=== PATIENT | male | born 1955 | race Hispanic/Latino ===

== ENCOUNTER 2018-04-28 02:15 | Emergency (ER) | payer BC ==
[~2018-04-28] VITALS: Ht 177.8 cm; Wt 127.0 kg
[2018-04-28] MEDS ORDERED: TETANUS/DIPHTHERIA TOX ADULT 0.5 ML SYR ONE (02:42)
[2018-04-28] MEDS ORDERED: TRIMETHOPRIM/SULFAMETHOXAZOLE 160-800 MG TAB PO ONE (02:45)
[2018-04-28] MEDS ORDERED: HYDROCODONE/APAP 10MG-325MG TAB PO ONE (02:45)
[2018-04-28] MEDS ORDERED: TETANUS/DIPHTHERIA TOX ADULT 0.5 ML SYR IM ONE (02:45)
[2018-04-28] MEDS ORDERED: NEOMYCIN/POLYMYX/BACITR OINT 0.9 GM PKT ONE (02:47)
== END 2018-04-28 03:38 | disposition home or self-care (01) ==
LOC: ER 02:15
DX: S81.802A Unspecified open wound, left lower leg, initial encounter (principal); W22.8XXA Striking against or struck by other objects, initial encounter; Y92.009 Unspecified place in unspecified non-institutional (private) residence as the place of occurrence of the external cause; I10 Essential (primary) hypertension; E11.9 Type 2 diabetes mellitus without complications; E78.5 Hyperlipidemia, unspecified
CPT/HCPCS: 90471; 90714; 99282

== ENCOUNTER 2019-06-07 19:17 | Emergency (ER) | payer BC, OTHER ==
[~2019-06-07] VITALS: Ht 177.8 cm; Wt 127.0 kg
--- OUTSIDE RECORDS SUMMARY | 2019-06-07 19:19 | XMS REPORT ---
Author Author [facility] Address Unknown Phone Unavailable Care Team Providers Care Semiconductor Engineer Name Role Phone Unavailable Unavailable Payers Payer Name Policy Type Policy Number Effective Date Expiration Date Problems This patient has no known problems. Allergies, Adverse Reactions, Alerts Allergy Name Allergy Type Status Severity Reaction(s) Onset Date Inactive Date Treating Clinician Comments No Known Allergies DA Active U 2019-02-02 00:00:00 Medications This patient has no known medications. Results Test Description Test Time Test Comments Text Results Atomic Results Result Comments TROPONIN-I 2019-02-02 23:04:00 TROPONIN-I (test code=TROPI) <0.015 ng/mL 0.00-0.056 - XR CHEST 2 [id number] 21:04:00 FAX: Tri Pereira [phone] [place]: [place] St: REG Name: Tierney REIDKASSYMORENO OVERTONDEVON MEDELLIN [facility] FSED : [birth year] Age/S: 63/M [address] [facility] [address] Unit #: [id number] Loc: [facility] B Phys: Tri Pereira MD [place], [place] [address] Acct: [id number] Dis Date: Status: REG ER PHONE #: Exam Date: 02/02/20192107 FAX #: Reason: CHEST PAIN EXAMS: CPT CODE: [id number] XR CHEST 2 V [id number] REASON FOR EXAM: CHEST PAIN Exam Order Date: 02/02/2019 8:03 PM Ordering M.D.: Tri Pereira MD PROCEDURE: - XR CHEST 2 V COM PARISON: None FINDINGS: The lungs are clear. There is no pleural effusion or pneumothorax. Pulmonary vascularity is within normal l imits. Cardiomediastinal silhouette is normal in size for techniqu e. The mediastinal contours are within normal limits. There are degenerative changes in the spine. The visualized upper abdome n is within normal limits. IMPRESSION: No acute cardiopu lmonary process. 19 at 2103 Reported and signed by: Rajeev Rosales MD CC: Tri Pereira MD Technologist: Florentino Quiroz Trnscrd Date/Time/By: 02/02/2019 (2103) : By: [email or web address] Orig Print D/T: S: 02/02/2019 (2110) PAGE 1 Signed Report BASIC METABOLIC [id number] 20:35:00* Test Item Value Reference Range Comments SODIUM (test code=NA) 141 mmol/L 128-145 POTASSIUM (test code=K) 3.8 mmol/L 3.5-5.1 CHLORIDE (test code=CL) 104.0 mmol/L 98-107 CARBON DIOXIDE (test code=CO2) 28.1 mmol/L 22-29 ANION GAP (test code=GAP) 13 mmol/L 10-20 GLUCOSE (test code=GLU) 143 mg/dL 70-110 BLOOD UREA NITROGEN (test code=BUN) 21 mg/dL 7-22 GLOMERULAR FILTRATION RATE (test code=GFR) > 60 mL/min >=60 Estimated GFR by using Modified MDRD formula.Chronic kidney disease is defined as either kidney damageor GFR <60 mL/min/1.73 m2 for >3 months. CREATININE (test code=CREAT) 0.91 mg/dL 0.55-1.3 BUN/CREATININE RATIO (test code=BUN/CREA) 23.1 10-20 CALCIUM (test code=CA) 8.4 mg/dL 8.0-10.5 [id number] 20:35:00* Test Item Value Reference Range Comments TROPONIN-I (test code=TROPI) <0.015 ng/mL 0.00-0.056 PROTHROMBIN [id number] 20:30:00* Test Item Value Reference Range Comments PROTHROMBIN TIME PATIENT (test code=PTP) 9.9 seconds 9.0-13.0 INTERNATIONAL NORMAL RATIO (test code=INR) 1.0 0.8-1.2 The therapeutic range for oral anticoagulant therapy formost indications is an international normalized ratio (INR)of between 2.0 and 3.0. The recommended therapeutic INRrange for various clinical situations is listed below: Clinical Situation INR range Pulmonary e mbolism treatment (2.0-3.0)Venous thrombosis treatmentVenous thrombosis prophylaxis (high risk surgery)Prevention of systemic embolism from: Acute myocardial infarction Valvular heart disease Atrial fibrillation Mechanical prosthetic heart valves (2.5-3.5) IS PATIENT ON ANTICOAGULANTS? NTHROMBOPLASTIN TIME [id number] 20:30:00* Test Item Value Reference Range Comments THROMBOPLASTIN TIME PARTIAL (test code=PTT) 28.5 seconds 25.5-34.3 Therapeutic Range for patients on Heparin Therapy is 2 to2.5 times their baseline PTT level. IS PATIENT ON ANTICOAGULANTS? NBASIC METABOLIC [id number] 20:27:00* Test Item Value Reference Range Comments SODIUM (test code=NA) 141 mmol/L 128-145 POTASSIUM (test code=K) 3.8 mmol/L 3.5-5.1 CHLORIDE (test code=CL) 104.0 mmol/L 98-107 CARBON DIOXIDE (test code=CO2) 28.1 mmol/L 22-29 ANION GAP (test code=GAP) 13 mmol/L 10-20 GLUCOSE (test code=GLU) 143 mg/dL 70-110 BLOOD UREA NITROGEN (test code=BUN) 21 mg/dL 7-22 GLOMERULAR FILTRATION RATE (test code=GFR) > 60 mL/min >=60 Estimated GFR by using Modified MDRD formula.Chronic kidney disease is defined as either kidney damageor GFR <60 mL/min/1.73 m2 for >3 months. CREATININE (test code=CREAT) 0.91 mg/dL 0.55-1.3 BUN/CREATININE RATIO (test code=BUN/CREA) 23.1 10-20 CALCIUM (test code=CA) 8.4 mg/dL 8.0-10.5 [id number] 20:27:00* Test Item Value Reference Range Comments TROPONIN-I (test code=TROPI) ng/mL 0-0.045 CBC W/O [id number] 20:18:00* Test Item Value Reference Range Comments WHITE BLOOD CELL (test code=WBC) 7.8 K/mm3 4.5-12.5 RED BLOOD CELL (test code=RBC) 4.65 mill/mm3 4.0-5.8 HEMOGLOBIN (test code=HGB) 14.2 gram/dL 13.0-17.5 HEMATOCRIT (test code=HCT) 44.7 % 42.0-52.0 MEAN CELL VOLUME (test code=MCV) 96.1 fL 80-98 MEAN CELL HGB (test code=MCH) 30.5 picogram 27.0-33.0 MEAN CELL HGB CONCETRATION (test code=MCHC) 31.8 gram/dL 33.0-36.0 RED CELL DISTRIBUTION WIDTH (test code=RDW) 14.1 % 11.6-16.2 RED CELL DISTRIBUTION WIDTH SD (test code=RDW-SD) 50.1 fL 37.0-51.0 PLATELET COUNT (test code=PLT) 186 K/mm3 150-450 MEAN PLATELET VOLUME (test code=MPV) 11.9 fL 6.7-11.0
[2019-06-07] MEDS ORDERED: IPRATROPIUM BROMIDE 0.02% 2.5 ML NEB NEB STA (19:36)
[2019-06-07] MEDS ORDERED: ALBUTEROL SULF 0.083% NEB SOLN 3 ML NEB NEB STA (19:36)
[2019-06-07] MEDS ORDERED: DEXAMETHASONE SOD PHOS 10 MG/1 ML VIAL IM NR (19:45)
[2019-06-07] MEDS ORDERED: ACETAMINOPHEN/CODEINE ELIX 120-12 MG/5 ML UDC PO NR (20:00)
--- NOTE | 2019-06-07 20:27 | Diagnostic Imaging Report ---
EXAMINATION: CHEST 2 VIEWS INDICATION: Cough. COMPARISON: None FINDINGS: TUBES and LINES: None. LUNGS: Lungs are well inflated. Patchy bibasilar opacities. There is central vascular congestion. PLEURA: No pleural effusion or pneumothorax. HEART AND MEDIASTINUM: The cardiomediastinal silhouette is unremarkable. BONES AND SOFT TISSUES: No acute osseous lesion. Soft tissues are unremarkable. UPPER ABDOMEN: No free air under the diaphragm. IMPRESSION: Central vascular congestion without pulmonary edema. Patchy bibasilar opacities, likely atelectasis. Early pneumonia is possible in the appropriate clinical setting. Suggest follow-up chest radiograph in 6-8 weeks to assess for resolution. Signed by: Dr. Bertrand Hylton MD on 06/07/2019 8:23 PM
== END 2019-06-07 21:20 | disposition home or self-care (01) ==
LOC: ER 19:17
DX: R50.9 Fever, unspecified (principal); R05 Cough; J11.1 Influenza due to unidentified influenza virus with other respiratory manifestations; I10 Essential (primary) hypertension; E11.9 Type 2 diabetes mellitus without complications; E78.5 Hyperlipidemia, unspecified
CPT/HCPCS: 71046; 94640; 99283

== ENCOUNTER 2020-02-26 20:41 | Observation (INO) | payer MEDICARE ==
[~2020-02-26] VITALS: Ht 177.8 cm; Wt 121.1 kg
[2020-02-26] MEDS ORDERED: CEFAZOLIN SOD 1 GM/NS 50ML 50 ML IV ONE (21:00)
[2020-02-26] MEDS ORDERED: MORPHINE SULFATE 2 MG/ML SYR 1ML IV STA (21:02)
[2020-02-26] MEDS ORDERED: ONDANSETRON HCL INJ 2MG/ML 2ML 2 MG/ML VIAL IV STA (21:02)
--- NOTE | 2020-02-26 21:28 | Emergency Department Note ---
History of Present Illnes History of Present Illness Chief Complaint: Laceration History of Present Illness This is a 64 year old male cut left 5th digit with a table saw, states he split the end of his finger in two.. Historian: Patient Onset (how long ago): minute(s) (30) Location: left 5th finger Quality: cut Radiation: Reports non-radiation Severity: severe Duration (how long): hour(s) (30 minutes) Timing of current episode: constant Progression: unchanged Chronicity: new Context: Reports trauma/injury (cut finger with table saw) Relieving factors: none Exacerbating factors: movement Associated symptoms: Reports denies other symptoms Treatments prior to arrival: none Past Medical/Family History Physician Review I have reviewed the patient's past medical and family history. Any updates have been documented here. Past Medical History Recent Fever: No Clinical Suspicion of Infectio: No New/Unexplained Change in Ment: No Past Medical History: Hypertension, Diabetes Past Surgical History: None Other Surgery: RIGHT SHOULDER Social History Smoking Cessation: Never Smoker Alcohol Use: Occasional Any Illegal Drug Use: No Family History Family history of heart diseas: No Other family history htn,dm Other Last Tetanus: UNKNOWN Review of Systems Review of Systems Constitutional: Reports no symptoms EENTM: Reports no symptoms Cardiovascular: Reports no symptoms Respiratory: Reports no symptoms Gastrointestinal: Reports no symptoms Genitourinary: Reports no symptoms Musculoskeletal: Reports as per HPI Integumentary: Reports no symptoms Neurological: Reports no symptoms Psychological: Reports no symptoms Endocrine: Reports no symptoms Hematological/Lymphatic: Reports no symptoms Physical Exam Related Data Allergies: Coded Allergies: No Known Allergies (Unverified , 04/28/18) Triage Vital Signs Vital Signs Date Time Temp Pulse Resp B/P (MAP) Pulse Ox O2 Delivery O2 Flow Rate FiO2 02/26/20 20:58 98.3 83 20 164/86 97 Room Air Vital signs reviewed: Yes Physical Exam CONSTITUTIONAL Constitutional: Present well-developed, Present well-nourished, Present distressed (mild) HENT HENT: Present normocephalic, Present atraumatic, Present oropharynx clear/moist, Present nose normal HENT L/R: Present left ext ear normal, Present right ext ear normal EYES Eyes: Reports PERRL, Reports conjunctivae normal NECK Neck: Present ROM normal PULMONARY Pulmonary: Present effort normal, Present breath sounds normal CARDIOVASCULAR Cardiovascular: Present regular rhythm, Present heart sounds normal, Present capillary refill normal, Present normal rate GASTROINTESTINAL Abdominal: Present soft, Present nontender, Present bowel sounds normal GENITOURINARY Genitourinary: Present exam deferred SKIN Skin: Present warm, Present dry MUSCULOSKELETAL pt with longitudinal cut through end of left 5 finger with nail involvement and likely fracture of the distal phalanx, wound is mangled and about 2 cm in length, minimal bleeding at this time NEUROLOGICAL Neurological: Present alert, Present oriented x 3, Present no gross motor or sensory deficits PSYCHOLOGICAL Psychological: Present mood/affect normal, Present judgement normal Results Laboratory Laboratory Laboratory Tests Test 02/26/20 22:08 White Blood Count 6.96 x10e3/uL (4.8-10.8) Red Blood Count 4.92 x10e6/uL (4.3-5.7) Hemoglobin 14.6 g/dL (14.0-18.0) Hematocrit 45.8 % (38.2-49.6) Mean Corpuscular Volume 93.1 fL (81-99) Mean Corpuscular Hemoglobin 29.7 pg (28-32) Mean Corpuscular Hemoglobin Concent 31.9 g/dL (31-35) Red Cell Distribution Width 13.2 % (11.7-14.4) Platelet Count 215 x10e3/uL (140-360) Neutrophils (%) (Auto) 57.8 % (38.7-80.0) Lymphocytes (%) (Auto) 26.1 % (18.0-39.1) Monocytes (%) (Auto) 8.5 % (4.4-11.3) Eosinophils (%) (Auto) 6.0 % (0.0-6.0) Basophils (%) (Auto) 0.9 % (0.0-1.0) Neutrophils # (Auto) 4.0 (2.1-6.9) Lymphocytes # (Auto) 1.8 (1.0-3.2) Monocytes # (Auto) 0.6 (0.2-0.8) Eosinophils # (Auto) 0.4 (0.0-0.4) Basophils # (Auto) 0.1 (0.0-0.1) Absolute Immature Granulocyte (auto 0.05 x10e3/uL (0-0.1) Prothrombin Time 13.2 seconds (11.9-14.5) Prothromb Time International Ratio 0.95 Activated Partial Thromboplast Time 31.7 seconds (23.8-35.5) Sodium Level 142 mmol/L (136-145) Potassium Level 4.9 mmol/L (3.5-5.1) Chloride Level 105 mmol/L (98-107) Carbon Dioxide Level 26 mmol/L (22-29) Anion Gap 15.9 mmol/L (8-16) Blood Urea Nitrogen 27 mg/dL (7-26) Creatinine 1.64 mg/dL (0.72-1.25) Estimat Glomerular Filtration Rate 42 ML/MIN (60-) BUN/Creatinine Ratio 16 (6-25) Glucose Level 166 mg/dL (74-118) Calcium Level 9.5 mg/dL (8.4-10.2) Lab results reviewed: Yes Imaging Imaging results reviewed: Yes Impressions Procedure: [id number] DX/FINGER LEFT Exam Date: 02/26/20 Exam Time: 2108 REPORT STATUS: Signed X-ray left finger 3 views HISTORY: Pain. COMPARISON: None available. FINDINGS: Bones: Acute comminuted open fracture of the fifth finger distal phalangeal tuft. Joints: The joint spaces are well-maintained. Soft tissues: Bone deep wound of the distal aspect of the fifth finger. IMPRESSION: Acute comminuted open fracture of the fifth finger distal phalangeal tuft with associated deep laceration. Signed by: Duane Bender DO on 02/26/2020 9:33 PM Procedures 12 Lead ECG Interpretation ECG Interpretation : ECG: ECG 1 [address] [place]: Interpreted by ED physician Date: Feb 26, 2020 Time: 22:31 Rhythm: sinus rhythm Rate: normal BPM: 74 QRS axis: normal Clinical Impression: normal ECG Assessment & Plan Medical Decision Making [facility] pt with injury to left 5th finger from table saw xray ordered to eval for fracture cbc, bmp, pt/ptt ordered as pre op labs morphine 4 mg iv ordered zofran 4 mg iv ordered ancef 1 gram iv ordered I SPOKE WITH DR PRABHAKAR, STATES HAVE PT ADMITTED TO [facility]ER HOSPITALIST, PT TO GO TO OR IN AM I SPOKE WITH DR PETIT FOR ADMISSION Assessment & Plan Final Impression: (1) 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
--- NOTE | 2020-02-26 21:36 | Diagnostic Imaging Report ---
X-ray left finger 3 views HISTORY: Pain. COMPARISON: None available. FINDINGS: Bones: Acute comminuted open fracture of the fifth finger distal phalangeal tuft. Joints: The joint spaces are well-maintained. Soft tissues: Bone deep wound of the distal aspect of the fifth finger. IMPRESSION: Acute comminuted open fracture of the fifth finger distal phalangeal tuft with associated deep laceration. Signed by: Duane Bender DO on 02/26/2020 9:33 PM
[2020-02-26] MEDS ORDERED: DEXTROSE 50% SYRINGE 50 ML IV PRN (22:00)
[2020-02-26] MEDS ORDERED: ONDANSETRON HCL INJ 2MG/ML 2ML 2 MG/ML VIAL IV PRN (22:00)
--- OUTSIDE RECORDS SUMMARY | 2020-02-26 22:05 | XMS REPORT | Continuity of Care Document ---
Author Author [facility] t Organization [facility] Address [address] [place] [address] Phone Unavailable Care Team Providers Care Mold Stacker Name Role Phone NONSTAFF PCP Unavailable Gilbert TIJERINA Attphys Unavailable INA PETIT Attphydallas Unavailable Payers Payer Name Policy Type Policy Number Effective Date Expiration Date [place] Crowder Ppo [id number] 2018 00:00:00 FRANCIS mcgraw [facility] Problems Condition Name Condition Details Condition Category Status Onset Date Resolution Date Last Treatment Date Treating Clinician Comments Source Left carpal tunnel syndrome Left carpal tunnel syndrome Disease Active 2018-09-03 00:00:00 Christian Crewsist Carpal tunnel syndrome on right Carpal tunnel syndrome on right Dis ease Active 2018-08-26 00:00:00 Christian Mcwilliams Allergies, Adverse Reactions, Alerts Allergy Name Allergy Type Status Severity Reaction(s) Onset Date Inacti ve Date Treating Clinician Comments Source No Known Allergies DA Active U 2019-02-02 00:00:00 [facility] Adhesive Tape-Silicones Propensity to adverse reactions to drug Activ e 2018-09-03 00:00:00 blisters Christian Meth odist Family History Family Member Diagnosis Comments Start Date Stop Date Source Natural father No Known Problems Alda Mcwilliams Natural mother No Known Problems Alda Mcwilliams Social History Social Habit Start Date Stop Date Quantity Comments Source History of tobacco use Current smoker [facility] History SDOH Alcohol Std Drinks [facility] History SDOH Alcohol Binge Christian Mcwilliams Sex Assigned At Alda Mcwilliams Cigarettes smoked current (pack per day) - Reported 00:00:00 2018-09-16 00:00:00 Christian Mcwilliams Cigarette pack-years 2018-09-16 00:00:00 2018-09-16 00:00:00 Christian Mcwilliams Alcohol intake 2018-09-16 00:00:00 2018-09-16 00:00:00 Current non-drinker of alcohol (finding) Christian Mcwilliams History SDOH Alcohol Frequency 2018-09-03 00:00:00 2018-09-03 00:00:0 0 1 Christian Mcwilliams Tobacco Comment 2018-09-03 00:00:00 2018-09-03 00:00:00 OFF AND ON FOR 30 YEARS. Christian Mcwilliams Smoking Status Start Date Stop Date Source Former smoker 2018-09-16 00:00:00 2018-09-16 00:00:00 Christian Mcwilliams Medications Ordered Medication Name Filled Medication Name Start Date Stop Da te Current Medication? Ordering Clinician Indication Dosage Frequency Signature (SIG) Comments Components Source glipiZIDE (GLUCOTROL) 10 MG 24 hr tablet 2018-07-29 00:00:00 Yes 10mg Q.5D Take 10 mg by mouth 2 (two) times a day. Christian Mcwilliams simvastatin (ZOCOR) 20 MG tablet 2018-07-29 00:00:00 Yes TAKE ONE TABLET BY MOUTH ONCE DAILY WITH DINNER FOR CHOLESTEROL Christian Mcwilliams pioglitazone-metformin (ACTOPLUS MET) 15-850 mg per tablet 2018-07-28 00:00:00 Yes 1{tbl} Q.5D Take 1 tablet by mouth 2 (two) times a day with meals. Christian Mcwilliams lisinopril-hydrochlorothiazide (PRINZIDE,ZESTORETIC) 20-25 m g per tablet 2018-07-28 00:00:00 Yes 1{tbl} Q.5D Take 1 tablet by mouth 2 (two) times a day. Christian Mcwilliams VICTOZA 3-CARLOTA 0.6 mg/0.1 mL (18 mg/3 mL) pen injector 2018-07-26 00:00:00 Yes INJECT 1.8 MILLIGRAM UNDER THE SKIN SAMUEL Mcwilliams Procedures Procedure Date / Time Performed Performing Clinician [facility] e X-ray of chest, two views 2019-06-07 00:00:00 INA JUÁREZ [facility] Plan of Care Planned Activity Planned Date Details Comments Source Future Scheduled Test 2020-03-09 00:00:00 INFLUENZA VACCINE [code = INFLUENZA VACCINE] [facility] Future Scheduled Test 2018 00:00:00 65+ PNEUMOCOCCAL V ACCINE (1 of 2 - PCV13) [code = 65+ PNEUMOCOCCAL VACCINE (1 of 2 - PCV13)] [facility] Future Scheduled Test 2003 00:00:00 COLONOSCOPY SCREEN ING [code = COLONOSCOPY SCREENING] [facility] Future Scheduled Test 2003 00:00:00 SHINGLES VACCINES (#1) [code = SHINGLES VACCINES (#1)] [facility] Encounters Start Date/Time End Date/Time Encounter Type Admission Type [facility] Care Department Encounter ID Source 2019-06-07 19:17:00 2019-06-07 21:20:00 Departed Emergency Room [id number] Results Test Description Test Time Test Comments Results Result Comments Source FINGER LEFT 2020-02-26 21:32:00 [facility] [address] [address] Patient Name: POLA SANTO MR #: [id number] : 1955 Age/Sex: 64/M Req #: [id number] Adm Physician: Ordered by: BOSTON TIJERINA MD Report #: [id number] Location: ER Room/Bed: Procedure: [id number] DX/FINGER LEFT Exam Date: 02/26/20 Exam Time: 2108 REPORT STATUS: Signed X-ray left finger 3 views HISTORY: Pain. COMPARISON: None available. FINDINGS: Bones: Acute comminuted open fracture of the fifth finger distal phalangeal tuft. Joints: The joint spaces are well-maintained. Soft tissues: Bone deep wound of the distal aspect of the fifth finger. IMPRESSION: Acute comminuted open fracture of the fifth finger distal phalangeal tuft with associated deep laceration. Signed by: Duane Rossi DO on 02/26/2020 9:33 PM Dictated By: DUANE ROSSI DO 32 Transcribed By: DREW on 02/26/202132 COPY TO: BOSTON TIJERINA MD CHEST 2 VIEWS 2019-06-07 20:21:[address] [address] Patient Name: POLA SANTO MR #: [id number] : 1955 Age/Sex: 63/M Req #: [id number] Adm Physician: Ordered by: INA JUÁREZ NP Report #: [id number] Location: ER Room/Bed: Procedure: [id number] DX/CHEST 2 VIEWS Exam Date: Exam Time: REPORT STATUS: Signed EXAMINATION: CHEST 2 VIEWS INDICATION: Cough. COMPARISON: None FINDINGS: TUBES and LINES: None. LUNGS: Lungs are well inflated. Patchy bibasilar opacities. There is central vascular congestion. PLEURA: No pleural effusion or pneumothorax. HEART AND MEDIASTINUM: The cardiomediastinal silhouette is unremarkable. BONES AND SOFT TISSUES: No acute osseous lesion. Soft tissues are unremarkable. UPPER ABDOMEN: No free air under the diaphragm. IMPRESSION: Central vascular congestion without pulmonary edema. Patchy bibasilar opacities, likely atelectasis. Early pneumonia is possible in the [facility] clinical setting. Suggest follow-up chest radiograph in 6-8 weeks to assess for resolution. Signed by: Dr. Radha Moreno MD on 06/07/2019 8:23 PM Dictated By: RADHA MORENO MD 22 Transcribed By: DREW on 06/07/192022 COPY TO: INA JUÁREZ NP TROPONIN-I 2019-02-02 23:04:00 Test Item TROPONIN-I (test code = TROPI) <0.015 ng/mL 0.00-0.056 N - XR CHEST 2 [id number] 21:04:00 FAX: Tri Pereira [phone] [place]: [place] St: REG Name: POLA VELA [facility] FSED : [birth year] Age/S: 63/M [address] [facility] Unit #: [id number] Loc: [facility] [address] Phys: Tri Pereira MD [place], [place] [address] Acct: [id number] Dis Date: Status: REG ER PHONE #: Exam Date: 02/02/20192107 FAX #: Reason: CHEST PAIN EXAMS: CPT CODE: [id number] XR CHEST 2 V [id number] REASON FOR EXAM: CHEST PAIN Exam Order Date: 02/02/2019 8:03 PM Ordering M.Kaelyn: Tri Pereira MD PROCEDURE: - XR CHEST [...] No acute cardiopu lmonary process. 19 at 2104 Reported and signed by: Rajeev Rosales MD CC: Tri Pereira MD Technologist: Florentino Quiroz Trnscrd Date/Time/By: 02/02/2019 (2103) : By: [email or web address] Orig Print D/T: S: 02/02/2019 (2110) PAGE 1 Signed Report BASIC METABOLIC [id number] 20:35:00* Test Item Value Reference Range Interpretation Comments SODIUM (test code = NA) 141 mmol/L 128-145 N POTASSIUM (test code = K) 3.8 mmol/L 3.5-5.1 N CHLORIDE (test code = CL) 104.0 mmol/L 98-107 N CARBON DIOXIDE (test code = CO2) 28.1 mmol/L 22-29 N ANION GAP (test code = GAP) 13 mmol/L 10-20 N GLUCOSE (test code = GLU) 143 mg/dL 70-110 H BLOOD UREA NITROGEN (test code = BUN) 21 mg/dL 7-22 N GLOMERULAR FILTRATION RATE (test code = GFR) > 60 mL/min >=60 Estimated GFR by using Modified MDRD formula.Chronic kidney disease is defined as either kidney damageor GFR <60 mL/min/1.73 m2 for >3 months. CREATININE (test code = CREAT) 0.91 mg/dL 0.55-1.3 N BUN/CREATININE RATIO (test code = BUN/CREA) 23.1 10-20 H CALCIUM (test code = CA) 8.4 mg/dL 8.0-10.5 N [id number] 20:35:00* Test Item Value Reference Range Interpretation Comments TROPONIN-I (test code = TROPI) <0.015 ng/mL 0.00-0.056 N PROTHROMBIN [id number] 20:30:00* Test Item Value Reference Range Interpretation Comments PROTHROMBIN TIME PATIENT (test code = PTP) 9.9 seconds 9.0-13.0 N INTERNATIONAL NORMAL RATIO (test code = INR) 1.0 0.8-1.2 N The therapeutic range for oral anticoagulant therapy [...] (2.5-3.5) IS PATIENT ON ANTICOAGULANTS? NTHROMBOPLASTIN TIME [id number] 20:30:00* Test Item Value Reference Range Interpretation Comments THROMBOPLASTIN TIME PARTIAL (test code = PTT) 28.5 seconds 25.5-34. 3 N Therapeutic Range for patients on Heparin Therapy is 2 to2.5 times their baseline PTT level. IS PATIENT ON ANTICOAGULANTS? NBASIC METABOLIC [id number] 20:27:00* Test Item Value Reference Range Interpretation Comments SODIUM (test code = NA) 141 mmol/L 128-145 N POTASSIUM (test code = K) 3.8 mmol/L 3.5-5.1 N CHLORIDE (test code = CL) 104.0 mmol/L 98-107 N CARBON DIOXIDE (test code = CO2) 28.1 mmol/L 22-29 N ANION GAP (test code = GAP) 13 mmol/L 10-20 N GLUCOSE (test code = GLU) 143 mg/dL 70-110 H BLOOD UREA NITROGEN (test code = BUN) 21 mg/dL 7-22 N GLOMERULAR FILTRATION RATE (test code = GFR) > 60 mL/min >=60 Estimated GFR by using Modified MDRD formula.Chronic kidney disease is defined as either kidney damageor GFR <60 mL/min/1.73 m2 for >3 months. CREATININE (test code = CREAT) 0.91 mg/dL 0.55-1.3 N BUN/CREATININE RATIO (test code = BUN/CREA) 23.1 10-20 H CALCIUM (test code = CA) 8.4 mg/dL 8.0-10.5 N [id number] 20:27:00* Test Item Value Reference Range Interpretation Comments TROPONIN-I (test code = TROPI) ng/mL 0-0.045 CBC W/O [id number] 20:18:00* Test Item Value Reference Range Interpretation Comments WHITE BLOOD CELL (test code = WBC) 7.8 K/mm3 4.5-12.5 N RED BLOOD CELL (test code = RBC) 4.65 mill/mm3 4.0-5.8 N HEMOGLOBIN (test code = HGB) 14.2 gram/dL 13.0-17.5 N HEMATOCRIT (test code = HCT) 44.7 % 42.0-52.0 N MEAN CELL VOLUME (test code = MCV) 96.1 fL 80-98 N MEAN CELL HGB (test code = MCH) 30.5 picogram 27.0-33.0 N MEAN CELL HGB CONCETRATION (test code = MCHC) 31.8 gram/dL 33.0-36. 0 L RED CELL DISTRIBUTION WIDTH (test code = RDW) 14.1 % 11.6-16. 2 N RED CELL DISTRIBUTION WIDTH SD (test code = RDW-SD) 50.1 fL 37 .0-51.0 N PLATELET COUNT (test code = PLT) 186 K/mm3 150-450 N MEAN PLATELET VOLUME (test code = MPV) 11.9 fL 6.7-11.0 H
--- OUTSIDE RECORDS SUMMARY | 2020-02-26 22:05 | XMS REPORT | Clinical Summary ---
Author Author [facility] Organization [facility] Address Unknown Phone Unavailable Care Team Providers Care Network Cabler Name Role Phone Asked, No Pcp PCP Unavailable Allergies Comments Active Allergy Reactions Severity Noted Date blisters Adhesive Tape-Silicones 09/03/2018 Medications End Date Status Medication Sig Dispensed Refills Start Date Active pioglitazone-metformin Take 1 tablet 0 07/28/ 01 (ACTOPLUS MET) 15-850 mg by mouth 2 9 per tablet (two) times a day with meals. Active glipiZIDE (GLUCOTROL) 10 Take 10 mg by 1 07/29 MG 24 hr tablet mouth 2 (two) 9 times a day. Active lisinopril-hydrochlorothi Take 1 tablet 0 / azide by mouth 2 9 (PRINZIDE,ZESTORETIC) (two) times a 20-25 mg per tablet day. Active simvastatin (ZOCOR) 20 MG TAKE ONE 0 07/10 tablet TABLET BY 9 MOUTH ONCE DAILY WITH DINNER FOR CHOLESTEROL Active VICTOZA 3-CARLOTA 0.6 mg/0.1 INJECT 1.8 5 07/26 mL (18 mg/3 mL) pen MILLIGRAM 9 injector UNDER THE SKIN DAILY Active Problems Problem Noted Date Left carpal tunnel syndrome 09/03/2018 Carpal tunnel syndrome on right 08/26/2018 Family History Medical History Relation Name Comments No Known Problems Father No Known Problems Mother Relation Name Status Comments Father Mother Social History Date Tobacco Use Types Packs/Day Years Used Quit: 2004 Former Smoker Cigarettes 1 30 Smokeless Tobacco: Never Used Comments: OFF AND ON FOR 30 YEARS. Drinks/Week oz/Week Comments Alcohol Use No Alcohol Habits Answer Date Recorded How often do you have a drink containing alcohol? Never 09/03/2018 How many drinks containing alcohol do you have on No t asked a typical day when you are drinking? How often do you have six or more drinks on one Not asked occasion? Sex Assigned at Date Recorded Not on file Industry Job Start Date Occupation Not on file Not on file Not on file Travel End Travel History Travel Start No recent travel history available. 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
[2020-02-26 22:14] LABS: BASOPHILS # (AUTO) 0.1 (0.0-0.1); BASOPHILS % 0.9 % (0.0-1.0); EOSINOPHILS # (AUTO) 0.4 (0.0-0.4); HEMATOCRIT 45.8 % (38.2-49.6); HEMOGLOBIN 14.6 g/dL (14.0-18.0); LYMPHOCYTES # (AUTO) 1.8 (1.0-3.2); LYMPHOCYTES % 26.1 % (18.0-39.1); MEAN CORPUSCULAR HEMOGLOBIN 29.7 pg (28-32); MEAN CORPUSCULAR HGB CONC 31.9 g/dL (31-35); MEAN CORPUSCULAR VOLUME 93.1 fL (81-99); MONOCYTES # (AUTO) 0.6 (0.2-0.8); MONOCYTES % 8.5 % (4.4-11.3); NEUTROPHILS % 57.8 % (38.7-80.0); PLATELET COUNT 215 x10e3/uL (140-360); RED BLOOD COUNT 4.92 x10e6/uL (4.3-5.7); RED CELL DISTRIBUTION WIDTH 13.2 % (11.7-14.4)
[2020-02-26] MEDS: SODIUM CHLORIDE 0.9% 1000ML 1,000 ML IV SCH (22:14)
[2020-02-26] MEDS ORDERED: MORPHINE SULFATE INJ 4 MG/ML INJ 1ML IV PRN (22:15)
[2020-02-26 22:23] LABS: INR 0.95; PROTHROMBIN TIME 13.2 seconds (11.9-14.5)
[2020-02-26 22:24] LABS: PARTIAL THROMBOPLASTIN TIME 31.7 seconds (23.8-35.5)
--- OUTSIDE RECORDS SUMMARY | 2020-02-26 22:27 | XMS REPORT | Continuity of Care Document ---
Author Author [facility] t Organization [facility] Address [address] [place] [address] Phone Unavailable Care Team Providers Care Supply Chain Coordinator Name Role Phone NONSTAFF PCP Unavailable Gilbert TIJERINA Attphys Unavailable INA PETIT Attphydallas Unavailable Payers Payer Name Policy Type Policy Number Effective Date Expiration Date [place] Crowder Ppo [id number] 2018 00:00:00 FRANCIS [facility] Problems Condition Name Condition Details Condition Category [...] Known Allergies DA Active U 2019-02-02 00:00:00 [facility] Adhesive Tape-Silicones Propensity to adverse reactions to drug Activ e 2018-09-03 00:00:00 blisters [facility]ist Family History Family Member Diagnosis Comments Start Date Stop Date Source Natural father No Known Problems Alda Mcwilliams Natural mother No Known Problems Alda Mcwilliams Social History Social Habit Start Date Stop Date Quantity Comments Source History of tobacco use Current smoker [place] [employer] History SDOH Alcohol Std Drinks Christian [employer] History SDOH Alcohol Binge Christian Mcwilliams Sex [...] Procedure Date / Time Performed Performing Clinician [facility] e X-ray of chest, two views 2019-06-07 00:00:[address] [facility] Plan of Care Planned Activity Planned Date Details Comments Source Future Scheduled Test 2020-03-09 00:00:00 INFLUENZA VACCINE [code = INFLUENZA VACCINE] [facility] Future Scheduled Test 2018 00:00:00 65+ PNEUMOCOCCAL V ACCINE (1 of 2 - PCV13) [code = 65+ PNEUMOCOCCAL VACCINE (1 of 2 - PCV13)] [facility] Future Scheduled Test 2003 00:00:00 COLONOSCOPY SCREEN ING [code = COLONOSCOPY SCREENING] [facility] Future Scheduled Test 2003 00:00:00 SHINGLES VACCINES (#1) [code = SHINGLES VACCINES (#1)] [facility] Encounters Start Date/Time End Date/Time Encounter Type Admission Type Attendi [facility] Care Department Encounter ID Source 2019-06-07 19:17:00 2019-06-07 21:20:00 Departed Emergency Room 1 DAMASO INA [facility] [id number] [facility] Results Test Description Test Time Test Comments Results Result Comments Source FINGER LEFT 2020-02-26 21:32:00 [facility] [address] [address] Patient Name: POLA SANTO MR #: [id number] : 1955 Age/Sex: 64/M Req #: [id number] Adm Physician: Ordered by: BOSTON TIJERINA MD Report #: [id number] Location: ER Room/Bed: Procedure: [id number] DX/FINGER LEFT Exam Date: 02/26/20 Exam Time: [...] TIJERINA MD CHEST 2 VIEWS 2019-06-07 20:21:00 [address] [place] [address] Patient Name: POLA SANTO MR #: [id number] : 1955 Age/Sex: 63/M Req #: [id number] Adm Physician: Ordered by: INA JUÁREZ NP Report #: [id number] Location: ER Room/Bed: Procedure: [id number] DX/CHEST 2 VIEWS Exam Date: Exam Time: [...] Early pneumonia [facility]. Suggest follow-up chest radiograph in 6-8 weeks to assess for resolution. Signed by: Dr. Radha Moreno MD on 06/07/2019 8:23 PM Dictated By: RADHA MORENO MD 22 Transcribed By: DREW on 06/07/192022 COPY TO: INA JUÁREZ NP TROPONIN-I 2019-02-02 23:04:00 Test Item TROPONIN-I (test code = TROPI) <0.015 ng/mL 0.00-0.056 N - XR CHEST 2 [id number] 21:04:00 FAX: Tri Pereira [phone] [place]: [place] St: REG Name: POLA VELA [facility] FSED : [birth year] Age/S: 63/M [address] [facility] Unit #: [id number] Loc: [facility] [address] Phys: Tri Pereira MD [place], [place] [address] Acct: [id number] Dis Date: Status: REG ER PHONE #: Exam Date: 02/02/20192107 FAX #: Reason: CHEST PAIN EXAMS: CPT CODE: [id number] XR CHEST 2 V 11829 REASON FOR EXAM: CHEST PAIN Exam Order [...] (2110) PAGE 1 Signed Report BASIC METABOLIC [id number] 20:35:00* Test Item Value Reference Range Interpretation [...] code = CA) 8.4 mg/dL 8.0-10.5 N [id number] 20:35:00* Test Item Value Reference Range Interpretation Comments TROPONIN-I (test code = TROPI) <0.015 ng/mL 0.00-0.056 N PROTHROMBIN [id number] 20:30:00* Test Item Value Reference Range Interpretation [...] (2.5-3.5) IS PATIENT ON ANTICOAGULANTS? NTHROMBOPLASTIN TIME [id number] 20:30:00* Test Item Value Reference Range Interpretation Comments THROMBOPLASTIN TIME PARTIAL (test code = PTT) 28.5 seconds 25.5-34. 3 N Therapeutic Range for patients on Heparin Therapy is 2 to2.5 times their baseline PTT level. IS PATIENT ON ANTICOAGULANTS? NBASIC METABOLIC [id number] 20:27:00* Test Item Value Reference Range Interpretation [...] code = CA) 8.4 mg/dL 8.0-10.5 N [id number] 20:27:00* Test Item Value Reference Range Interpretation Comments TROPONIN-I (test code = TROPI) ng/mL 0-0.045 CBC W/O [id number] 20:18:00* Test Item Value Reference Range Interpretation [...]
--- OUTSIDE RECORDS SUMMARY | 2020-02-26 22:27 | XMS REPORT | Clinical Summary ---
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
[2020-02-26 22:30] LABS: ANION GAP 15.9 mmol/L (8-16); CALCIUM 9.5 mg/dL (8.4-10.2); CREATININE, SERUM 1.64 mg/dL (0.72-1.25); POTASSIUM 4.9 mmol/L (3.5-5.1)
[2020-02-26] MEDS: CEFAZOLIN SOD 1 GM/NS 50ML 50 ML IV SCH (22:44)
--- NOTE | 2020-02-26 23:06 | Diagnostic Imaging Report ---
EXAMINATION: CHEST SINGLE (PORTABLE) INDICATION: Preop COMPARISON: Chest x-ray 06/07/2019 FINDINGS: TUBES and LINES: None. LUNGS: Normal lung volumes. Lungs are clear. Prominent central pulmonary vasculature. PLEURA: No pleural effusion or pneumothorax. HEART AND MEDIASTINUM: Cardiac size is mildly enlarged. BONES AND SOFT TISSUES: No acute osseous lesion. Soft tissues are unremarkable. UPPER ABDOMEN: No free air under the diaphragm. IMPRESSION: Mild cardiomegaly and pulmonary vascular congestion. Signed by: Duane Bender DO on 02/26/2020 11:03 PM
[2020-02-27] VITALS (7 sets, daily range): BP systolic 127–145; BP diastolic 74–83
--- NOTE | 2020-02-27 00:15 | NUR ---
PATIENT ARRIVED VIA STRETCHER TO THE UNIT FROM ER. RECEIVED REPORT FROM SHARONDA BATES NURSE. PATIENT IN NO PAIN OR DISTRESS. CALL LIGHT WITHIN REACH.
[2020-02-27] MEDS ORDERED: LISINOPRIL10 MG PO (02:36)
[2020-02-27] MEDS ORDERED: GLIPIZIDE ER5 MG (02:36)
[2020-02-27] MEDS ORDERED: PIOGLITAZONE HC45 MG PO (02:36)
[2020-02-27] MEDS ORDERED: FARXIGA10 MG (02:36)
[2020-02-27] MEDS: CEFAZOLIN SOD 1 GM/NS 50ML 50 ML IV SCH ×2 (05:29→14:00)
[2020-02-27] MEDS: SODIUM CHLORIDE 0.9% 1000ML 1,000 ML IV SCH ×2 (05:29→16:54)
--- NOTE | 2020-02-27 06:51 | NUR ---
GAVE BEDSIDE SHIFT REPORT TO ONCOMING NURSE. CALL LIGHT WITHIN REACH. PATIENT IN BED. HOURLY ROUNDING PERFORMED.
[2020-02-27] MEDS: INSULIN REGULAR, HUMAN 100 UNIT/1 ML 3ML VIAL SQ SCH ×3 (07:30→16:30)
[2020-02-27] MEDS ORDERED: FENTANYL CITRATE/PF 100MCG/2 ML INJ ONE (15:14)
[2020-02-27] MEDS ORDERED: MIDAZOLAM HCL 2 MG/2 ML VIAL ONE (15:14)
[2020-02-27] MEDS ORDERED: LIDOCAINE HCL 1% LOCAL INJ 20 ML VIAL ONE (15:56)
[2020-02-27] MEDS ORDERED: BUPIVACAINE HCL 0.5% INJ 30 ML VIAL INJ ONE (15:56)
[2020-02-27] MEDS ORDERED: PIOGLITAZONE HCL 15 MG TAB PO SCH (17:00)
[2020-02-27] MEDS ORDERED: GLIPIZIDE 5 MG TAB ER PO SCH (17:00)
[2020-02-27] MEDS ORDERED: TYLENOL WITH C1 EACH PO (18:41)
[2020-02-27] MEDS ORDERED: CLINDAMYCIN HC150 MG PO (18:42)
[2020-02-27] MEDS ORDERED: CELEBREX100 MG PO (18:43)
[2020-02-27] MEDS ORDERED: LIDOCAINE HCL 2% LOCAL INJ 5 ML SDV VIAL INJ ONE (19:42)
[2020-02-27] MEDS ORDERED: CEFAZOLIN SOD 1 GM VIAL ONE (19:42)
[2020-02-27] MEDS ORDERED: ONDANSETRON HCL INJ 2MG/ML 2ML 2 MG/ML VIAL ONE (19:42)
[2020-02-27] MEDS ORDERED: PROPOFOL IV EMULSION 10 MG/ML 20 ML VIAL ONE (19:42)
[2020-02-27] MEDS ORDERED: SEVOFLURANE INHAL SOLN 250 ML PEN BTL ONE (19:42)
--- NOTE | 2020-02-27 20:10 | Consultation ---
DATE OF CONSULTATION: 02/27/2020 REASON FOR CONSULT: Left small finger table saw injury. 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 He presented to the emergency department, was noted to have a large soft tissue defect to the small finger as well as pain in the small finger. He has no pain elsewhere. No numbness or tingling. He denies any pain elsewhere. PAST MEDICAL HISTORY: Diabetes, well controlled. PAST SURGICAL HISTORY: Shoulder surgery, gallbladder surgery. 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 No tobacco or drug or alcohol use. REVIEW OF SYSTEMS: Negative for numbness or tingling. Negative for fevers or chills. PHYSICAL EXAMINATION: Evaluation of left upper extremity demonstrates the left small finger table saw injury with a split down the pulp of the finger as well as soft tissue loss on the dorsal aspect of the finger with an open tuft fracture. The finger appears warm and well perfused. There is no tenderness to palpation elsewhere. He is able to flex and extend that digit. He has sensation to the tip. IMAGING: X-rays of the small finger demonstrate a loss of the distal phalanx with a soft tissue injury. ASSESSMENT: Left small finger table saw injury. PLAN: Discussed with the patient treatment options to include irrigation and debridement of open fracture and soft tissue reconstruction versus revision amputation. Discussed with the patient that we will plan to perform irrigation debridement and due to the nature of the injury, we will likely perform a nailbed ablation and revision amputation over the direct soft tissue coverage over the tip of the distal phalanx. Benefits and risks of the surgery were discussed with the patient including bleeding, infection, damage to nearby structures, need for further surgery, persistent pain, stiffness, possible loss of life or limb, knowing the he elected to proceed. Consent was obtained. We will see him back in clinic approximately five days after his surgery. He can be discharged home as soon as his pain is well controlled on p.o. antibiotics. MD ALETA Brooke/ALBERT /[id number]
--- NOTE | 2020-02-27 23:35 | Operative Report ---
DATE OF PROCEDURE: 02/27/2020 SURGEON: Jackie Plascencia MD PREPROCEDURE DIAGNOSIS: Left small finger partial amputation. POSTPROCEDURE DIAGNOSIS: Left small finger partial amputation, open fracture, distal phalanx. PROCEDURES PERFORMED: Irrigation and debridement of left small finger open distal phalanx fracture, complete excision of nail matrix, avulsion of nail plate, and complex wound closure from approximately 3 cm. ANESTHESIA: Local with LMA. COMPLICATIONS: None. SPECIMENS: None. ESTIMATED BLOOD LOSS: Minimal. INDICATIONS FOR PROCEDURE: Sacha Santo is a 64-year-old male, who sustained a left small finger table saw injury yesterday. He was seen in the emergency department and was admitted for IV antibiotics and further care. Benefits and risks of surgery were discussed with the patient including bleeding, infection, damage to vascular structures, persistent pain, stiffness, need for additional surgery, and knowing this, he elected to proceed. DESCRIPTION OF PROCEDURE: The patient was identified in the preoperative holding area, where the above noted site was marked. He was then transferred to the operating room, where above-noted anesthesia was induced. He was placed supine on the table with the left upper extremity on the hand table. Left upper extremity was then prepped and draped in usual sterile fashion. Prior to this, a digital block was performed to the level of the left small finger. Preoperative antibiotics were dosed. Preprocedural time-out was called. All were in agreement and began. We first began by removing remnants of nail plate, there were present over the left small finger, there was noted to be a large split wound through the pulp of the finger as well as with loss of the distal half of the distal phalanx. There was a large amount of nail plate as well as over 80% of the nail bed that was missing. I removed the remnants of the nail plate and removed the nail plate in its entirety to ensure we had all fragments removed. We then performed irrigation and debridement of open fracture. There was noted to be a distal phalanx fracture and we debrided this using a curette as well as a rongeur. Once we were satisfied with the debridement, and we ensured that we had all devitalized appearing tissue excised. We then turned our attention to our evaluation of the finger. There was noted to be over 80% of the nail bed, that was missing and we felt that this would be most prudent to excise the remainder of the nail bed in order to achieve coverage of the tip of the distal phalanx as well as to preserve length of the distal phalanx with our closure. The nail bed was then removed in its entirety using a knife. Once this was performed, we then used bipolar to ablate the edges as well. We ensured that we had all portions of the germinal matrix excised. We then turned our attention to complex closure. We were able to close the most proximal margin of the wound and then rotated a large flap of the volar pulp and swung this around to cover the exposed bone of the distal phalanx dorsally. We used scissors to debulk the volar flap we then closed this using 4-0 Prolene sutures and 5-0 plain gut sutures. At this point, we were then satisfied with the reconstruction. The Liberty tourniquet that was placed earlier was let down and the pulp pinked up. A soft sterile dressing was then placed and the patient was then taken to PACU in stable condition. POSTOPERATIVE PLAN: The patient will be discharged to home today. He will see us back in 5 days for wound check. He will continue his postoperative antibiotics outpatient. MD ALETA Brooke/ALBERT /[id number]
[2020-02-28] MEDS ORDERED: LISINOPRIL 10 MG TAB PO SCH (09:00)
== END 2020-02-27 19:05 | disposition home or self-care (01) ==
LOC: ER 20:48 → ERHOLD 22:24 → MED/SURG 23:56
PROVIDERS: ADMIT Internal Medicine; ATTEND Internal Medicine
DX: S68.127A Partial traumatic metacarpophalangeal amputation of left little finger, initial encounter (principal); S62.637B Displaced fracture of distal phalanx of left little finger, initial encounter for open fracture; W31.2XXA Contact with powered woodworking and forming machines, initial encounter; I10 Essential (primary) hypertension; E11.9 Type 2 diabetes mellitus without complications; Z83.3 Family history of diabetes mellitus; Z82.49 Family history of ischemic heart disease and other diseases of the circulatory system; E78.5 Hyperlipidemia, unspecified; E66.9 Obesity, unspecified; Z68.38 Body mass index [BMI] 38.0-38.9, adult; Z11.59 Encounter for screening for other viral diseases
CPT/HCPCS: 11011; 11730; 14040; 36415 ×2; 71045; 73140; 80048; 82948; 85025; 85610; 85730; 93005; 99284; G0378 ×2; J0690 ×3; J2001 ×2; J2250; J2270 ×2; J2405 ×2; J2704; J3010; J7030 ×2; U0002

== ENCOUNTER 2020-03-23 14:46 | Outpatient (RCR) | payer MEDICARE ==
[~2020-03-23 14:46] MED LIST: CELEBREX100 MG PO; CLINDAMYCIN HC150 MG PO; FARXIGA10 MG; GLIPIZIDE ER5 MG; LISINOPRIL10 MG PO; PIOGLITAZONE HC45 MG PO; TYLENOL WITH C1 EACH PO
== END 2020-04-07 ==
LOC: OT 14:46
PROVIDERS: ATTEND Orthopaedic Surgery
DX: S68.12 Partial traumatic metacarpophalangeal amputation of other and unspecified finger (principal)
CPT/HCPCS: 97112; 97165; L3933

== ENCOUNTER 2020-04-20 19:34 | Emergency (ER) | payer MEDICARE ==
[~2020-04-20] VITALS: Ht 177.8 cm; Wt 120.2 kg
[2020-04-20] MEDS ORDERED: ONDANSETRON HCL INJ 2MG/ML 2ML 2 MG/ML VIAL IV STA (19:52)
--- OUTSIDE RECORDS SUMMARY | 2020-04-20 19:57 | XMS REPORT | Continuity of Care Document ---
Author Author [facility] t Organization [facility] Address [address] [place] [address] Phone Unavailable Care Team Providers Care Catalogue Illustrator Name Role Phone NONSTAFF PCP Unavailable BRUNA PETIT Attphys Unavailable PETITINA Attphys Unavailable PETITBRUNA Admphydallas Unavailable Payers Payer Name Policy Type Policy Number Effective Date Expiration Date S tigre [employer] Medicare Replacement [id number] 2019 00:00:0 0 [facility] Aetna Ppo [id number] 2018 00:00:00 [facility] Problems Condition Name Condition Details Condition Category Status Onset Date Resolution Date Last Treatment Date Treating Clinician Comments Source Left carpal tunnel syndrome Left carpal tunnel syndrome Disease Active 2018-09-03 00:00:00 [place] Taoist Carpal tunnel syndrome on right Carpal tunnel syndrome on right Dis ease Active 2018-08-26 00:00:00 Christian Mcwilliams 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 Adhesive Tape-Silicones Propensity to adverse reactions to drug Activ e 2018-09-03 00:00:00 blisters Abiquiu Meth odist Family History Family Member Diagnosis Comments Start Date Stop Date Source Natural father No Known Problems Alda ston Taoist Natural mother No Known Problems Alda luigidaquan Taoist Social History Social Habit Start Date Stop Date Quantity Comments Source History of tobacco use Current smoker [place] Taoist History SDOH Alcohol Std Drinks Abiquiu Taoist History SDOH Alcohol Binge Christian Mcwilliams Sex Assigned At Alda earl Mcwilliams Cigarettes smoked current (pack per day) - Reported 00:00:00 2018-09-16 00:00:00 Christian Mcwilliams Cigarette pack-years 2018-09-16 00:00:00 2018-09-16 00:00:00 Christian Mcwilliams Tobacco use and exposure 2018-09-16 00:00:00 2018-09-16 00:00:00 Hie r used Christian Mcwilliams Alcohol intake 2018-09-16 00:00:00 2018-09-16 00:00:00 Current non-drinker of alcohol (finding) [place] Taoist History SDOH Alcohol Frequency 2018-09-03 00:00:00 2018-09-03 [...] 1.8 MILLIGRAM UNDER THE SKIN SAMUEL Mcwilliams Acetaminophen With Codeine (Tylenol With Codeine #3 Ta blet) 1 Each TABLET Acetaminophen With Codeine (Tylenol With Codeine #3 Tablet) 1 Each TABLET Yes 300 Every 6 Hours as needed for Moderate Binh n (4-6) [facility] Celecoxib (Celebrex*) 100 Mg CAPSULE Celecoxib (Celebrex*) 100 Mg C APSULE Yes 100 Twice A Day as needed for Moderate Pain (4-6) [facility] Clindamycin Hcl Clindamycin Hcl Yes 300 Three Ti mes A Day [facility] Dapagliflozin Propanediol (Farxiga) 10 Mg TABLET Dapag liflozin Propanediol ([facility]) 10 Mg TABLET Yes Daily [facility] Glipizide (Glipizide Er) 5 Mg TAB.ER.24 Glipizide (Glipizide Er) 5 Mg TAB.ER.24 Yes 10 Twice A Day [facility] Lisinopril Lisinopril Yes 10 Daily [facility] Pioglitazone Hcl Pioglitazone Hcl Yes 15 Twice A Day [facility] Vital Signs Vital Name Observation Time Observation Value Comments Source Body Temperature 2020-02-27 18:21:00 98.4 [degF] [facility] BMI (Body Mass Index) 2020-02-27 09:58:00 38.3 kg/m2 [facility] Weight 2020-02-27 00:00:00 267 [lb_av] [facility] Procedures Procedure Date / Time Performed Performing Clinician Shawna e DEBRIDE SKIN MUSC AT FX SITE 2020-02-26 00:00:00 [facility] REMOVAL OF NAIL PLATE 2020-02-26 00:00:00 [facility] TIS TRNFR F/C/C/M/N/A/G/H/F 2020-02-26 00:00:00 [facility] Plan of Care Planned Activity Planned Date Details Comments Source Future Scheduled Test 2020-02-07 00:00:00 INFLUENZA VACCINE [code = INFLUENZA VACCINE] [facility] Future Scheduled Test 2018 00:00:00 65+ PNEUMOCOCCAL V ACCINE (1 of 1 - PPSV23) [code = 65+ PNEUMOCOCCAL VACCINE (1 of 1 - PPSV23)] [facility] Future Scheduled Test 2003 00:00:00 COLONOSCOPY SCREEN ING [code = COLONOSCOPY SCREENING] [facility] Future Scheduled Test 2003 00:00:00 SHINGLES VACCINES (#1) [code = SHINGLES VACCINES (#1)] [facility] Encounters Start Date/Time End Date/Time Encounter Type Admission Type Att[facility] Care Department Encounter ID Source 2020-03-23 14:46:00 2020-04-07 23:59:[address] [facility] [id number] [facility] 2020-03-17 13:06:00 2020-03-17 13:06:00 Outpatient [facility] NW 0253 [facility] 2020-02-26 22:24:00 2020-02-27 19:05:00 Discharged Inpatient (obs) [address] [facility] [id number] Dominga [facility] 2019-06-07 18:17:00 2019-06-07 20:20:00 Departed Emergency Room [address] [facility] [id number] [facility] Results Test Description Test Time Test Comments Results Result Comments Source Capillary blood glucose measurement by glucometer (mas s/volume) 2020-02-27 18:16:00 Test Item Bedside Glucose (test code = 05955-2) 126 70-120 Meter ID: [id number] [facility] measurement by glucometer (mass/volume)2020-02-27 18:16:00* Test Item Value Reference Range Interpretation Comments Bedside Glucose (test code = 57090-5) 126 70-120 Meter ID: [id number] [facility]2020-02-26 23:03:00 [facility] [address] [place] [address] Patient Name: POLA SANTO MR #: [id number] : 1955 Age/Sex: 64/M Req #: [id number] Adm Physician: BRUNA PETIT MD Ordered by: BOSTON TIJERINA MD Report #: [id number] Location: MED/SURG Room/Bed: [facility] Procedure: [id number] DX/CHEST SINGLE (PORTABLE) Exam Date: 02/26/20 Exam Time: 12 REPORT STATUS: Signed EXAMINA TION: CHEST SINGLE (PORTABLE) INDICATION: Preop COMPARISON: Chest x-ray 06/07/2019 FINDINGS: TUBES and LINES: None. LUNGS: Normal lung volumes. Lungs are clear. Prominent central pulmonary vasculature. PLEURA: No pleural effusion or pneumothorax. HEART AND M EDIASTINUM: Cardiac size is mildly enlarged. BONES AND SOFT TISSUES: No acute osseous lesion. Soft tissues are unremarkable. UPPER ABDOMEN: N o free air under the diaphragm. IMPRESSION: Mild cardiomegaly and pulmonary vascular congestion. Signed by: Duane Bender DO on 02/25 11:03 PM Dictated By: DUANE BENDER DO 02 Transcribed By: DREW on 02/26/202302 COPY TO: BOSTON TIJERINA MD Fluoroscopic procedure less than one hour [id number] 22:43:00* Test Item Value Reference Range Interpretation Comments Coronavirus (PCR) (test code = Coronavirus (PCR)) NOT DETECTED NOTD ETECTED SARS-COV2/RT-PCR CEPHEIDResults are for the detection of SARS-COV-2 RNA. The KEIRY S-COV-2 RNA is generally detectable in nasopharyngeal swab specimens during the acute phase of infection. Positive results are indicitive of active infection wi th SARS-COV-2; clinical correlation with patient history and other diagnostic in formation is necessary to determine patient infection status. Positive results d o not rule out bacterial infection or co-infection with other viruses. The agent detected may not be the definite cause of the disease.The limit of detection for this assay is 250 copies/mLThe SARS-CoV-2 test is a rapid, real-time RT-PCR test intended for the qualitative detection of nucleic acid from SARS-CoV-2 in chris opharyngeal swab specimen collected from individuals suspected of COVID-19 by [facility] healthcare provider. This test has not been Food and Drug Administration (FD A) cleared or approved and has been authorized by FDA under an Emergency Use Aut horization (EUA). This EUA will be effective until the declaration that circumst ances exist justifying the authorization of the emergency use of in vitro diagno stic test for detection and or diagnosis of COVID-19 is terminated under section 564(b) of the Act, or the the EUA is revoked under 564(g) of the ACT.[facility] ChildrenFluoroscopic procedure less than one hour [id number] 22:43:00* Test Item Value Reference Range Interpretation Comments Coronavirus (PCR) (test code = Coronavirus (PCR)) NOT DETECTED NOTD ETECTED SARS-COV2/RT-PCR CEPHEIDResults are for the detection of SARS-COV-2 RNA. The KEIRY S-COV-2 RNA is generally detectable in nasopharyngeal swab specimens during the acute phase of infection. Positive results are indicitive of active infection wi th SARS-COV-2; clinical correlation with patient history and other diagnostic in formation is necessary to determine patient infection status. Positive results d o not rule out bacterial infection or co-infection with other viruses. The agent detected may not be the definite cause of the disease.The limit of detection for this assay is 250 copies/mLThe SARS-CoV-2 test is a rapid, real-time RT-PCR test intended for the qualitative detection of nucleic acid from SARS-CoV-2 in chris opharyngeal swab specimen collected from individuals suspected of COVID-19 by [facility] healthcare provider. This test has not been Food and Drug Administration (FD A) cleared or approved and has been authorized by FDA under an Emergency Use Aut horization (EUA). This EUA will be effective until the declaration that circumst ances exist justifying the authorization of the emergency use of in vitro diagno stic test for detection and or diagnosis of COVID-19 is terminated under section 564(b) of the Act, or the the EUA is revoked under 564(g) of the ACT.[facility] leukocytes automated count (number/volume) 2020-02-26 22:08:00* Test Item Value Reference Range Interpretation Comments White Blood Count (test code = 6690-2) 6.96 4.8-10.8 [facility] erythrocytes automated count (number/volume)2020-02-26 22:08:00* Test Item Value Reference Range Interpretation Comments Red Blood Count (test code = 789-8) 4.92 4.3-5.7 [facility] ChildrenBlood hemoglobin measurement (moles/volume)2020-02-26 22:08:00* Test Item Value Reference Range Interpretation Comments Hemoglobin (test code = 30947-2) 14.6 14.0-18.0 [facility] ChildrenAutomated blood hematocrit (volume fraction)2020-02-26 22:08:00* Test Item Value Reference Range Interpretation Comments Hematocrit (test code = 4544-3) 45.8 38.2-49.6 [facility] ChildrenAutomated erythrocyte mean corpuscular [id number] 22:08:00* Test Item Value Reference Range Interpretation Comments Mean Corpuscular Volume (test code = 787-2) 93.1 81-99 [facility] ChildrenAutomated erythrocyte mean corpuscular hemoglobin (mass per erythrocyte)2020-02-26 22:08:00* Test Item Value Reference Range Interpretation Comments Mean Corpuscular Hemoglobin (test code = 785-6) 29.7 28-32 [facility] ChildrenAutomated erythrocyte mean corpuscular hemoglobin concentration measurement (mass/volume)2020-02-26 22:08:00* Test Item Value Reference Range Interpretation Comments Mean Corpuscular Hemoglobin Concent (test code = 786-4) 31.9 31-35 [facility] ChildrenRDW DcnCu-[id number] 22:08:00* Test Item Value Reference Range Interpretation Comments Red Cell Distribution Width (test code = 06301-5) 13.2 11.7 -14.4 [facility] ChildrenAutomated blood platelet count (count/volume)2020-02-26 22:08:00* Test Item Value Reference Range Interpretation Comments Platelet Count (test code = 777-3) 215 140-360 [facility] ChildrenAutomated blood segmented neutrophil count as percentage of total cztaepfwvf0563-78-41 22:08:00* Test Item Value Reference Range Interpretation Comments Neutrophils (%) (Auto) (test code = 99231-3) 57.8 38.7-80.0 [facility] ChildrenAutomated blood lymphocyte count as percentage ot total aapbxktgcx8692-60-11 22:08:00* Test Item Value Reference Range Interpretation Comments Lymphocytes (%) (Auto) (test code = 736-9) 26.1 18.0-39.1 [facility] ChildrenAutomated blood monocyte count as percentage of total fgobhbwqip3808-37-80 22:08:00* Test Item Value Reference Range Interpretation Comments Monocytes (%) (Auto) (test code = 5905-5) 8.5 4.4-11.3 [facility] ChildrenAutomated blood eosinophil count as percentage of total ywutftkayc2944-04-45 22:08:00* Test Item Value Reference Range Interpretation Comments Eosinophils (%) (Auto) (test code = 713-8) 6.0 0.0-6.0 [facility] ChildrenAutomated blood basophil count as percentage of total zpkuldjdlc0064-76-83 22:08:00* Test Item Value Reference Range Interpretation Comments Basophils (%) (Auto) (test code = 706-2) 0.9 0.0-1.0 [facility] ChildrenFluoroscopic procedure less than one hour vaefjnvw2378-97-97 22:08:00* Test Item Value Reference Range Interpretation Comments IM GRANULOCYTES % (test code = IM GRANULOCYTES %) 0.7 0.0- 1.0 [facility] ChildrenAutomated blood neutrophil count 2020-02-26 22:08:00* Test Item Value Reference Range Interpretation Comments Neutrophils # (Auto) (test code = 751-8) 4.0 2.1-6.9 [facility] ChildrenBlood lymphocytes count (number/volume) 2020-02-26 22:08:00* Test Item Value Reference Range Interpretation Comments Lymphocytes # (Auto) (test code = 37761-0) 1.8 1.0-3.2 [facility] ChildrenBlood monocytes automated count (number/volume)2020-02-26 22:08:00* Test Item Value Reference Range Interpretation Comments Monocytes # (Auto) (test code = 742-7) 0.6 0.2-0.8 [facility] ChildrenAutomated blood eosinophil count 2020-02-26 22:08:00* Test Item Value Reference Range Interpretation Comments Eosinophils # (Auto) (test code = 711-2) 0.4 0.0-0.4 [facility] ChildrenAutomated blood basophil count (count/volume)2020-02-26 22:08:00* Test Item Value Reference Range Interpretation Comments Basophils # (Auto) (test code = 704-7) 0.1 0.0-0.1 [facility] ChildrenFluoroscopic procedure less than one hour [id number] 22:08:00* Test Item Value Reference Range Interpretation Comments Absolute Immature Granulocyte (auto (shabbir t code = Absolute Immature Granulocyte (auto) 0.05 0-0.1 [facility] ChildrenProthrombin time (PT) in platelet poor plasma by coagulation utpbb7696-35-30 22:08:00* Test Item Value Reference Range Interpretation Comments Prothrombin Time (test code = 5902-2) 13.2 11.9-14.5 [facility] ChildrenINR in Platelet poor plasma by Coagulation wbxzh0622-86-71 22:08:00* Test Item Value Reference Range Interpretation Comments Prothromb Time International Ratio (test code = 6301-6) 0.95 Oral Anticoagulant Therapy INR Values:1. Low Intensity Therapy 1.5 - 2.02 . Moderate Intensity Therapy 2.0 - 3.03. High Intensity Therapy(1) 2.5 - 3. 54. High Intensity Therapy(2) 3.0 - 4.05. Panic Value INR > 5.0 [facility] ChildrenActivated partial thromboplastin time (aPTT) in platelet poor plasma by coagulation tgmjt2786-11-86 22:08:00* Test Item Value Reference Range Interpretation Comments Activated Partial Thromboplast Time (test code = 00020-3) 31.7 23.8-35.5 [facility] or plasma sodium measurement (moles/volume)2020-02-26 22:08:00* Test Item Value Reference Range Interpretation Comments Sodium Level (test code = 2951-2) 142 136-145 [facility] Resources[facility] or plasma potassium measurement (moles/volume)2020-02-26 22:08:00* Test Item Value Reference Range Interpretation Comments Potassium Level (test code = 2823-3) 4.9 3.5-5.1 [facility] Resources[facility] or plasma chloride measurement (moles/volume)2020-02-26 22:08:00* Test Item Value Reference Range Interpretation Comments Chloride Level (test code = 2075-0) 105 98-107 [facility] or plasma carbon dioxide, total measurement (moles/volume)2020-02-26 22:08:00* Test Item Value Reference Range Interpretation Comments Carbon Dioxide Level (test code = 2028-9) 26 22-29 [facility] or plasma anion [id number] 22:08:00* Test Item Value Reference Range Interpretation Comments Anion Gap (test code = 59301-2) 15.9 8-16 [facility] or plasma urea nitrogen measurement (mass/volume)2020-02-26 22:08:00* Test Item Value Reference Range Interpretation Comments Blood Urea Nitrogen (test code = 3094-0) 27 7-26 [facility] or plasma creatinine measurement (mass/volume)2020-02-26 22:08:00* Test Item Value Reference Range Interpretation Comments Creatinine (test code = 2160-0) 1.64 0.72-1.25 [facility] or plasma urea nitrogen/creatinine mass fuofk1677-72-69 22:08:00* Test Item Value Reference Range Interpretation Comments BUN/Creatinine Ratio (test code = 3097-3) 16 6-25 [facility] ChildrenEstimated glomerular filtration rate (GFR) hitkfohiqcfmg3257-13-78 22:08:00* Test Item Value Reference Range Interpretation Comments Estimat Glomerular Filtration Rate (test code = 237656030) 42 >60 Ranges were taken from the National Kidney Disease Education Program and the [facility] Kidney Foundation literature.Reference ranges:60 or greater: Ngascq70-73 ( for 3 consecutive months): Chronic kidney disease 15 or less: Kidney failureTexas Scottish Rite Hospital for ChildrenGlucose nnzwcwqvzuy8755-55-11 22:08:00* Test Item Value Reference Range Interpretation Comments Glucose Level (test code = KQW4728) 166 74-118 [facility] or plasma calcium measurement (mass/volume)2020-02-26 22:08:00* Test Item Value Reference Range Interpretation Comments Calcium Level (test code = 01269-4) 9.5 8.4-10.2 [facility] ChildrenBlood leukocytes automated count (number/volume)2020-02-26 22:08:00* Test Item Value Reference Range Interpretation Comments White Blood Count (test code = 6690-2) 6.96 4.8-10.8 [facility] ChildrenBlood erythrocytes automated count (number/volume)2020-02-26 22:08:00* Test Item Value Reference Range Interpretation Comments Red Blood Count (test code = 789-8) 4.92 4.3-5.7 [facility] ChildrenBlood hemoglobin measurement (moles/volume)2020-02-26 22:08:00* Test Item Value Reference Range Interpretation Comments Hemoglobin (test code = 99229-2) 14.6 14.0-18.0 [facility] ChildrenAutomated blood hematocrit (volume fraction)2020-02-26 22:08:00* Test Item Value Reference Range Interpretation Comments Hematocrit (test code = 4544-3) 45.8 38.2-49.6 [facility] ChildrenAutomated erythrocyte mean corpuscular hkqcpf2734-86-57 22:08:00* Test Item Value Reference Range Interpretation Comments Mean Corpuscular Volume (test code = 787-2) 93.1 81-99 [facility] ChildrenAutomated erythrocyte mean corpuscular hemoglobin (mass per erythrocyte)2020-02-26 22:08:00* Test Item Value Reference Range Interpretation Comments Mean Corpuscular Hemoglobin (test code = 785-6) 29.7 28-32 [facility] ChildrenAutomated erythrocyte mean corpuscular hemoglobin concentration measurement (mass/volume)2020-02-26 22:08:00* Test Item Value Reference Range Interpretation Comments Mean Corpuscular Hemoglobin Concent (test code = 786-4) 31.9 31-35 [facility] for ChildrenRDW IwxCw-Wwv6092-45-20 22:08:00* Test Item Value Reference Range Interpretation Comments Red Cell Distribution Width (test code = 82427-4) 13.2 11.7 -14.4 [facility] ChildrenAutomated blood platelet count (count/volume)2020-02-26 22:08:00* Test Item Value Reference Range Interpretation Comments Platelet Count (test code = 777-3) 215 140-360 [facility] ChildrenAutat[facility] blood segmented neutrophil count as percentage of total dbjnhmgxwy7699-59-27 22:08:00* Test Item Value Reference Range Interpretation Comments Neutrophils (%) (Auto) (test code = 32048-0) 57.8 38.7-80.0 [facility] ChildrenAutomated blood lymphocyte count as percentage ot total jnfupdfppu3339-74-59 22:08:00* Test Item Value Reference Range Interpretation Comments Lymphocytes (%) (Auto) (test code = 736-9) 26.1 18.0-39.1 [facility] ChildrenAutomated blood monocyte count as percentage of total oujmyyrynq1846-01-09 22:08:00* Test Item Value Reference Range Interpretation Comments Monocytes (%) (Auto) (test code = 5905-5) 8.5 4.4-11.[address] [facility] eosinophil count as percentage of total kqabuvvwto1218-29-63 22:08:00* Test Item Value Reference Range Interpretation Comments Eosinophils (%) (Auto) (test code = 713-8) 6.0 0.0-6.0 [facility] ChildrenAutomated blood basophil count as percentage of total gabzllkwfz5115-62-43 22:08:00* Test Item Value Reference Range Interpretation Comments Basophils (%) (Auto) (test code = 706-2) 0.9 0.0-1.0 [facility] ChildrenFluoroscopic procedure less than one hour aacexrwc2477-98-72 22:08:00* Test Item Value Reference Range Interpretation Comments IM GRANULOCYTES % (test code = IM GRANULOCYTES %) 0.7 0.0- 1.0 [facility] 2020-02-26 22:08:00* Test Item Value Reference Range Interpretation Comments Neutrophils # (Auto) (test code = 751-8) 4.0 2.1-6.9 [facility] ChildrenBlood lymphocytes count (number/volume) 2020-02-26 22:08:00* Test Item Value Reference Range Interpretation Comments Lymphocytes # (Auto) (test code = 31932-8) 1.8 1.0-3.2 [facility] monocytes automated count (number/volume)2020-02-26 22:08:00* Test Item Value Reference Range Interpretation Comments Monocytes # (Auto) (test code = 742-7) 0.6 0.2-0.8 [facility] ChildrenAutomated blood eosinophil count 2020-02-26 22:08:00* Test Item Value Reference Range Interpretation Comments Eosinophils # (Auto) (test code = 711-2) 0.4 0.0-0.4 [facility] ChildrenAutomated blood basophil count (count/volume)2020-02-26 22:08:00* Test Item Value Reference Range Interpretation Comments Basophils # (Auto) (test code = 704-7) 0.1 0.0-0.1 [facility] ChildrenFluoroscopic procedure less than one hour ecvojuul8145-13-38 22:08:00* Test Item Value Reference Range Interpretation Comments Absolute Immature Granulocyte (auto (shabbir t code = Absolute Immature Granulocyte (auto) 0.05 0-0.1 [facility] ChildrenProthrombin time (PT) in platelet poor plasma by coagulation rrbcd8349-06-49 22:08:00* Test Item Value Reference Range Interpretation Comments Prothrombin Time (test code = 5902-2) 13.2 11.9-14.5 [facility] ChildrenINR in Platelet poor plasma by Coagulation holwk4000-40-89 22:08:00* Test Item Value Reference Range Interpretation Comments Prothromb Time International Ratio (test code = 6301-6) 0.95 Oral Anticoagulant Therapy INR Values:1. Low Intensity Therapy 1.5 - 2.02 . Moderate Intensity Therapy 2.0 - 3.03. High Intensity Therapy(1) 2.5 - 3. 54. High Intensity Therapy(2) 3.0 - 4.05. Panic Value INR > 5.0 [facility] partial thromboplastin time (aPTT) in platelet poor plasma by coagulation [id number] 22:08:00* Test Item Value Reference Range Interpretation Comments Activated Partial Thromboplast Time (test code = 35797-8) 31.7 23.8-35.5 [facility] [place] [facility] or plasma sodium measurement (moles/volume)2020-02-26 22:08:00* Test Item Value Reference Range Interpretation Comments Sodium Level (test code = 2951-2) 142 136-145 [facility] [place] [facility] or plasma potassium measurement (moles/volume)2020-02-26 22:08:00* Test Item Value Reference Range Interpretation Comments Potassium Level (test code = 2823-3) 4.9 3.5-5.1 [facility] [place] [facility] or plasma chloride measurement (moles/volume)2020-02-26 22:08:00* Test Item Value Reference Range Interpretation Comments Chloride Level (test code = 2075-0) 105 98-107 [facility] [place] [facility] or plasma carbon dioxide, total measurement (moles/volume)2020-02-26 22:08:00* Test Item Value Reference Range Interpretation Comments Carbon Dioxide Level (test code = 2028-9) 26 22-29 [facility] [place] [facility] or plasma anion [id number] 22:08:00* Test Item Value Reference Range Interpretation Comments Anion Gap (test code = 49754-7) 15.9 8-16 [facility] [place] [facility] or plasma urea nitrogen measurement (mass/volume)2020-02-26 22:08:00* Test Item Value Reference Range Interpretation Comments Blood Urea Nitrogen (test code = 3094-0) 27 7-26 [facility] [place] [facility] or plasma creatinine measurement (mass/volume)2020-02-26 22:08:00* Test Item Value Reference Range Interpretation Comments Creatinine (test code = 2160-0) 1.64 0.72-1.25 [facility] [place] [facility] or plasma urea nitrogen/creatinine mass [id number] 22:08:00* Test Item Value Reference Range Interpretation Comments BUN/Creatinine Ratio (test code = 3097-3) 16 6-25 [facility] ChildrenEstimated glomerular filtration rate (GFR) [id number] 22:08:00* Test Item Value Reference Range Interpretation Comments Estimat Glomerular Filtration Rate (test code = 783699045) 42 >60 Ranges were taken from the National Kidney Disease Education Program and the [facility] [employer] literature.Reference ranges:60 or greater: Bjwxjq45-82 ( for 3 consecutive months): Chronic kidney disease 15 or less: Kidney failureTexas Scottish Rite Hospital for ChildrenGlucose [id number] 22:08:00* Test Item Value Reference Range Interpretation Comments Glucose Level (test code = DLW5024) 166 74-118 [facility] [place] [facility] or plasma calcium measurement (mass/volume)2020-02-26 22:08:00* Test Item Value Reference Range Interpretation Comments Calcium Level (test code = 75970-4) 9.5 8.4-10.2 [facility] ChildrenFINGER [id number] 21:32:00 [facility] [address] [place] [address] Patient Name: POLA SANTO MR #: [id number] : 1955 Age/Sex: 64/M Req #: [id number] Adm Physician: Ordered by: BOSTON TIJERINA MD Report #: [id number] Location: ER Room/Bed: Procedure: [id number] DX/INOCENCIO Vargas LEFT Exam Date: 02/26/20 Exam Time: 2108 [...] with associated deep laceration. Signed by: Duane Bender DO on 02/26/2020 9:33 PM Dictated By: DUANE BENDER DO 32 Transcribed By: DREW on 02/26/202132 COPY TO: OBSTON TIJERINA MD [facility] 2 [id number] 20:21:00 [place] [address] Patient Name: POLA SANTO MR #: [id number] : 1955 Age/Sex: 63/M Req #: [id number] Adm Physician: Ordered by: INA JUÁREZ NP Report #: [id number] Location: ER Room/Bed: Procedure: [id number] DX /CHEST 2 VIEWS Exam Date: Exam Time: REPORT STATUS: Signed EXAMINATION: CHEST 2 V IEWS INDICATION: Cough. COMPARISON: None FINDINGS: T UBES and LINES: None. LUNGS: Lungs are well inflated. Patchy bibasilar op acities. There is central vascular congestion. PLEURA: No pleural effusi on or pneumothorax. HEART AND MEDIASTINUM: The cardiomediastinal silhouet te is unremarkable. BONES AND SOFT TISSUES: No acute osseous lesion. Soft tissues are unremarkable. UPPER ABDOMEN: No free air under the diaph ragm. IMPRESSION: Central vascular congestion without pulmonary negar a. Patchy bibasilar opacities, likely atelectasis. Early pneumonia is possi ble in the appropriate clinical setting. Suggest follow-up chest radiograph in 6-8 weeks to assess for resolution. Signed by: Dr. Radha Moreno MD on 8:23 PM Dictated By: RADHA MORENO MD 22 Transcribed By: DREW on 06/07/192022 COPY TO: INA JUÁREZ INTERIOR [employer]SEM[employer]IES DEVELOPER PROVER [id number] 23:04:00* Test Item Value Reference Range Interpretation Comments TROPONIN-I (test code = TROPI) <0.015 ng/mL 0.00-0.056 N - XR CHEST 2 [id number] 21:04:00 FAX: Tri Pereira [phone] [place]: [place] St: REG Name: POLA VELA [facility] FSED : [birth year] Age/S: 63/M [address] Unit #: [id number] Loc: [facility] [address] Phys: Tri Pereira MD [place], [place] [address] Acct: [id number] Dis Date: Status: REG ER PHONE #: Exam Date: 02/02/20192107 FAX #: Reason: CHEST PAIN EXAMS: CPT CODE: [id number] XR CHEST 2 V 02927 REASON FOR EXAM: CHEST PAIN Exam Order [...] (2110) PAGE 1 Signed Report BASIC METABOLIC [id number] 20:35:00* Test Item Value Reference Range Interpretation [...] code = CA) 8.4 mg/dL 8.0-10.5 N [id number] 20:35:00* Test Item Value Reference Range Interpretation Comments TROPONIN-I (test code = TROPI) <0.015 ng/mL 0.00-0.056 N PROTHROMBIN [id number] 20:30:00* Test Item Value Reference Range Interpretation [...] (2.5-3.5) IS PATIENT ON ANTICOAGULANTS? NTHROMBOPLASTIN TIME [id number] 20:30:00* Test Item Value Reference Range Interpretation Comments THROMBOPLASTIN TIME PARTIAL (test code = PTT) 28.5 seconds 25.5-34. 3 N Therapeutic Range for patients on Heparin Therapy is 2 to2.5 times their baseline PTT level. IS PATIENT ON ANTICOAGULANTS? NBASIC METABOLIC [id number] 20:27:00* Test Item Value Reference Range Interpretation [...] code = CA) 8.4 mg/dL 8.0-10.5 N [id number] 20:27:00* Test Item Value Reference Range Interpretation Comments TROPONIN-I (test code = TROPI) ng/mL 0-0.045 CBC W/O [id number] 20:18:00* Test Item Value Reference Range Interpretation [...]
--- OUTSIDE RECORDS SUMMARY | 2020-04-20 19:57 | XMS REPORT | Clinical Summary ---
Author Author [facility] Address Unknown Phone Unavailable Care Team Providers Care Erp Consultant Name Role Phone Asked, No Pcp PCP [...] 10 Take 10 mg by 1 07/29 / MG 24 hr tablet mouth 2 (two) 9 times a day. Active lisinopril-hydrochlorothi Take 1 tablet 0 /2 azide by mouth 2 9 (PRINZIDE,ZESTORETIC) (two) times a 20-25 mg per tablet day. Active simvastatin (ZOCOR) 20 MG TAKE ONE 0 / tablet TABLET BY 9 MOUTH ONCE DAILY WITH DINNER FOR CHOLESTEROL Active VICTOZA 3-CARLOTA 0.6 mg/0.1 INJECT 1.8 5 07/26 mL (18 mg/3 mL) pen MILLIGRAM 9 injector UNDER THE SKIN DAILY Active Problems Problem Noted Date Left carpal tunnel syndrome 09/03/2018 Carpal tunnel syndrome on right 08/26/2018 Surgical History Surgery Date Site/Laterality Comments ROTATOR CUFF REPAIR right 2016 MENISCECTOMY right 2015 CHOLECYSTECTOMY UMBILICAL HERNIA REPAIR x 2 TONSILLECTOMY AND ADENOIDECTOMY RELEASE, CARPAL TUNNEL 09/13/2018 Wrist/Right Procedu re: RELEASE, CARPAL TUNNEL; Surgeon: Barrington Garzon MD; Location: [place] [address] OR; Service: Hand; Laterality: Right; Medical History Medical History Date Comments Diabetes mellitus (HCC) Left carpal tunnel syndrome 09/03/2018 Hypercholesteremia Type 2 diabetes mellitus (HCC) Hypertension Anesthesia NHAP/NFHAP DENIES SOB OR CH EST PAIN. Does not exercise ONLY AT WORK HE WALKS AND G OES UP THE STAIRS. PT STATES DOES NOT GET SOB AND DOES NOT GE T CHEST PAIN WHEN GOING UP THE STAIRS. Snoring Wears glasses Dental bridge present LOWER Hearing aid worn Family History Medical History Relation Name Comments No Known Problems Father No Known Problems Mother Relation Name Status Comments Father Mother Social History Date Tobacco Use Types Packs/Day Years Used Quit: 2003 Former Smoker Cigarettes 1 30 Smokeless Tobacco: [...] Assigned at Date Recorded Not on file Last Filed Vital Signs Not on file Plan of Treatment Health Maintenance Due Date Last Done Comments COLONOSCOPY SCREENING 2003 SHINGLES VACCINES (#1) 2003 65+ PNEUMOCOCCAL VACCINE 2018 (1 of 1 - PPSV23) INFLUENZA VACCINE 02/07/2020 Results Not on fileafter 04/20/2019 Insurance Type Payer Benefit Subscriber ID Effective Phone Address Plan / Dates Group HMO AETNA MEDICARE AETNA [id number] MEDICARE resent HMO/PPO [facility] Advance Directives For more information, please contact: [phone] 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
[2020-04-20] MEDS ORDERED: MORPHINE SULFATE INJ 4 MG/ML INJ 1ML IV PRN (20:00)
[2020-04-20 20:08] LABS: BASOPHILS % 0.4 % (0.0-1.0); EOSINOPHILS # (AUTO) 0.2 (0.0-0.4); EOSINOPHILS % 1.4 % (0.0-6.0); HEMATOCRIT 47.2 % (38.2-49.6); HEMOGLOBIN 14.7 g/dL (14.0-18.0); LYMPHOCYTES # (AUTO) 2.2 (1.0-3.2); LYMPHOCYTES % 20.7 % (18.0-39.1); MEAN CORPUSCULAR HEMOGLOBIN 29.5 pg (28-32); MEAN CORPUSCULAR HGB CONC 31.1 g/dL (31-35); MEAN CORPUSCULAR VOLUME 94.8 fL (81-99); MONOCYTES # (AUTO) 0.7 (0.2-0.8); MONOCYTES % 6.2 % (4.4-11.3); NEUTROPHILS # (AUTO) 7.5 (2.1-6.9); PLATELET COUNT 272 x10e3/uL (140-360); RED BLOOD COUNT 4.98 x10e6/uL (4.3-5.7); RED CELL DISTRIBUTION WIDTH 14.3 % (11.7-14.4)
[2020-04-20 20:24] LABS: ALBUMIN 4.2 g/dL (3.5-5.0); ALBUMIN/GLOBULIN RATIO 1.3 (0.8-2.0); ANION GAP 16.2 mmol/L (8-16); CALCIUM 9.6 mg/dL (8.4-10.2); CREATININE, SERUM 1.45 mg/dL (0.72-1.25); POTASSIUM 4.2 mmol/L (3.5-5.1)
[2020-04-20] MEDS ORDERED: SODIUM CHLORIDE 0.9% 500ML 500 ML IV STA (20:31)
--- NOTE | 2020-04-20 20:34 | Emergency Department Note ---
History of Present Illnes History of Present Illness Chief Complaint: General Medicine Complaints History of Present Illness This is a 64 year old male Chief Complaint Comment 64 Y/O M PRESENTS TO ED VIA POV C/O PAIN AND SOB S/P APPROX 8 FT WITNESSED FALL FROM LADDER. PT WITH LOC AND ABRASIONS TO LLE, LF FLANK AND LF SIDE OF HEAD. CURRNETLY HAVING SOB AT REST, STATES UNABLE TO TAKE DEEP BREATH, 93% ON RA. PT TO ER ROOM 1 ON ARRIVAL, ER MD TO BEDSIDE FOR EVAL. 18G IV TO LAC, LABS DRAWN, EKG DONE, 2L O2 NC APPLIED FOR COMFORT. PT DENIES TAKING BLOOD THINNERS. Historian: Patient Arrival Mode: Car Ios Developer Required: No Past Medical/Family History Physician Review I have reviewed the patient's past medical and family history. Any updates have been documented here. Past Medical History Recent Fever: No Clinical Suspicion of Infectio: No New/Unexplained Change in Ment: No Past Medical History: Hypertension, Diabetes Past Surgical History: Cholecysctectomy Other Surgery: BILATERAL KNEE SURGERY RIGHT SHOULDER Social History Physically hurt or threatened: No Other Last Tetanus: UNKNOWN Physical Exam Related Data Allergies: Coded Allergies: No Known Allergies (Unverified , 04/28/18) Triage Vital Signs Vital Signs Date Time Temp Pulse Resp B/P (MAP) Pulse Ox O2 Delivery O2 Flow Rate FiO2 04/20/20 19:45 98.6 89 20 156/86 96 Nasal Cannula 2.0 Physical Exam CONSTITUTIONAL HENT EYES NECK PULMONARY CARDIOVASCULAR GASTROINTESTINAL GENITOURINARY SKIN MUSCULOSKELETAL NEUROLOGICAL PSYCHOLOGICAL Results Laboratory Result Diagram: 04/20/20194904/20/201949 Laboratory Laboratory Tests Test 04/20/20 19:50 White Blood Count 10.70 x10e3/uL (4.8-10.8) Red Blood Count 4.98 x10e6/uL (4.3-5.7) Hemoglobin 14.7 g/dL (14.0-18.0) Hematocrit 47.2 % (38.2-49.6) Mean Corpuscular Volume 94.8 fL (81-99) Mean Corpuscular Hemoglobin 29.5 pg (28-32) Mean Corpuscular Hemoglobin Concent 31.1 g/dL (31-35) Red Cell Distribution Width 14.3 % (11.7-14.4) Platelet Count 272 x10e3/uL (140-360) Neutrophils (%) (Auto) 70.0 % (38.7-80.0) Lymphocytes (%) (Auto) 20.7 % (18.0-39.1) Monocytes (%) (Auto) 6.2 % (4.4-11.3) Eosinophils (%) (Auto) 1.4 % (0.0-6.0) Basophils (%) (Auto) 0.4 % (0.0-1.0) Neutrophils # (Auto) 7.5 (2.1-6.9) Lymphocytes # (Auto) 2.2 (1.0-3.2) Monocytes # (Auto) 0.7 (0.2-0.8) Eosinophils # (Auto) 0.2 (0.0-0.4) Basophils # (Auto) 0.0 (0.0-0.1) Absolute Immature Granulocyte (auto 0.14 x10e3/uL (0-0.1) Sodium Level 143 mmol/L (136-145) Potassium Level 4.2 mmol/L (3.5-5.1) Chloride Level 104 mmol/L (98-107) Carbon Dioxide Level 27 mmol/L (22-29) Anion Gap 16.2 mmol/L (8-16) Blood Urea Nitrogen 24 mg/dL (7-26) Creatinine 1.45 mg/dL (0.72-1.25) Estimat Glomerular Filtration Rate 49 ML/MIN (60-) BUN/Creatinine Ratio 17 (6-25) Glucose Level 275 mg/dL (74-118) Calcium Level 9.6 mg/dL (8.4-10.2) Total Bilirubin 0.4 mg/dL (0.2-1.2) Aspartate Amino Transf (AST/SGOT) 20 IU/L (5-34) Alanine Aminotransferase (ALT/SGPT) 26 IU/L (0-55) Alkaline Phosphatase 72 IU/L (40-150) Total Protein 7.4 g/dL (6.5-8.1) Albumin 4.2 g/dL (3.5-5.0) Globulin 3.2 g/dL (2.3-3.5) Albumin/Globulin Ratio 1.3 (0.8-2.0) Procedures 12 Lead ECG Interpretation ECG Interpretation : Ios Developer: Interpreted by ED physician Date: Apr 20, 2020 Rhythm: sinus rhythm Rate: normal BPM: 89 QRS axis: normal ST segments normal: Yes T waves normal: Yes Clinical Impression: normal ECG Assessment & Plan Medical Decision Making MDM 64-year-old male presents for fall from 8 foot ladder. Endorses some left sided chest pain workup shows ribs 6 through 9 fracture with some displacement. Small hemothorax noted. Will transfer to, [place] for admission. Patient is appropriate for transfer by ground. Will transfer to Dr. Valdez at [facility] Reassessment Reassessment time: 22:31 Reassessment Pain improved but still present Assessment & Plan Final Impression: (1) Ribs, multiple fractures Depart Disposition: TRANS TO OTHER [facility] Last Vital Signs Date Time Temp Pulse Resp B/P (MAP) Pulse Ox O2 Delivery O2 Flow Rate FiO2 04/20/20 19:45 98.6 89 20 156/86 96 Nasal Cannula 2.0 Home Meds Reported Medications Celecoxib* (CELEBREX*) 100 Mg Capsule, 100 MG PO BID PRN for MODERATE PAIN (4- 6), #30 CAP 02/27/20 Clindamycin Hcl (CLINDAMYCIN HCL) 150 Mg Capsule, 300 MG PO TID 02/27/20 Acetaminophen With Codeine (TYLENOL WITH CODEINE #3 TABLET) 1 Each Tablet, 300 MG PO Q6H PRN for MODERATE PAIN (4-6), TAB 02/27/20 Dapagliflozin Propanediol (Farxiga) 10 Mg Tablet, DAILY 02/27/20 Glipizide (GLIPIZIDE ER) 5 Mg Tab.er.24, 10 MG BID 02/27/20 Lisinopril (LISINOPRIL) 10 Mg Tablet, 10 MG PO DAILY, #30 TAB 02/27/20 Pioglitazone Hcl (PIOGLITAZONE HCL) 45 Mg Tablet, 15 MG PO BID, #30 TAB 02/27/20 Medications in the ED Ondansetron HCl 4 mg NOW STAT IV ; Start 04/20/20 at 19:52; Stop 04/20/20 at 20:04; Status DC Morphine Sulfate 4 mg Q6H PRN IV SEVERE PAIN (7-10); Start 04/20/20 at 20:00; Stop 04/27/20 at 19:59 Sodium Chloride 500 ml @ 0 mls/hr Q0M STAT IV ; Start 04/20/20 at 20:31; Stop 04/20/20 at 20:32; Status DC JOE MCDANIEL MD Apr 20, 2020 20:33
[2020-04-20] MEDS ORDERED: IOPAMIDOL 370 MG/ML 200 ML INFUS..BTL INJ ONE (20:43)
[2020-04-20] MEDS ORDERED: SODIUM CHLORIDE 0.9% 50ML 50 ML ONE (20:43)
--- NOTE | 2020-04-20 21:07 | Diagnostic Imaging Report ---
LOWER LEG LEFT - 3 views HISTORY: Pain COMPARISON: None available. FINDINGS: Bones: No acute displaced fracture. Osseous alignment is within normal limits. Tibial tuberosity spurring. Joints: The joint spaces are well-maintained. Soft tissues: The soft tissues appear unremarkable. IMPRESSION: No acute radiographic abnormality. Signed by: Dr. Lui Beyer MD on 04/20/2020 9:04 PM
--- NOTE | 2020-04-20 21:07 | Diagnostic Imaging Report ---
KNEE LEFT THREE VIEWS - 3 views HISTORY: Pain COMPARISON: None available. FINDINGS: Bones: No acute displaced fracture. Osseous alignment is within normal limits. Joints: Medial compartment joint space narrowing. Soft tissues: The soft tissues appear unremarkable. IMPRESSION: No acute fracture or dislocation of the left knee. Signed by: Dr. Lui Beyer MD on 04/20/2020 9:03 PM
--- NOTE | 2020-04-20 21:41 | Diagnostic Imaging Report ---
EXAMINATION: Head CT without contrast. HISTORY:Trauma fall. COMPARISON:None. TECHNIQUE: Multidetector axial images were obtained from the foramen magnum to the vertex without contrast. The images were reconstructed using brain and bone algorithms. Thin section brain images were reformatted into coronal and sagittal planes. Dose modulation, iterative reconstruction, and/or weight based adjustment of the mA/kV was utilized to reduce the radiation dose to as low as reasonably achievable. Intravenous contrast: None IMAGE QUALITY: Acceptable. FINDINGS: Skull/scalp: No lytic or blastic. lesions. No surgical changes. Parenchyma: Nonspecific few, scattered supratentorial white matter hypodensities possibly represent small vessel ischemic changes. No acute hemorrhage, mass or acute major vascular territorial infarct. Arteries: No density suggestive of thrombosis. Dural sinuses: No abnormal density suggestive of thrombosis. Ventricles: No hydrocephalus or displacement. Extra-axial spaces: No abnormal density. Brain volume: Mild generalized cerebral volume loss. Craniocervical junction: No mass, Chiari malformation, or basilar invagination. Sella: No mass. Paranasal/mastoid sinuses: Imaged portions unremarkable. IMPRESSION: 1. No new intracranial abnormality. 2. Mild supratentorial white matter small vessel ischemic changes. 3. Mild generalized cerebral volume loss. Signed by: Dr. Sherrill Melendrez M.D. on 04/20/2020 9:38 PM
--- NOTE | 2020-04-20 21:59 | Diagnostic Imaging Report ---
History: Trauma fall. Comparison studies: None Technique: Axial images were obtained through the cervical region.. Coronal and sagittal images reconstructed from the axial data. Dose modulation, iterative reconstruction, and/or weight based adjustment of the mA/kV was utilized to reduce the radiation dose to as low as reasonably achievable. Intravenous contrast: None Findings: Fractures: None. Soft tissue injuries: None. Atlantoaxial articulation: Intact. Alignment: Normal lordosis. No scoliosis. Cervicomedullary junction: No abnormalities. The foramen magnum is patent. Soft tissues: No abnormalities. Vertebrae: No fractures, infection or neoplasm. Degenerative changes: Moderate degenerative changes in the anterior atlantodental joint. C4-5: Mild right foraminal stenosis due to uncovertebral arthrosis. IMPRESSION: 1. No acute cervical spine abnormalities. 2. Ligament, spinal cord and or vascular abnormalities cannot be excluded on the basis of this examination. Signed by: Dr. Sherrill Melendrez M.D. on 04/20/2020 9:56 PM
--- NOTE | 2020-04-20 22:12 | Diagnostic Imaging Report ---
History:Trauma, fall. Comparison studies: None Technique: Axial images were obtained through the maxillofacial region. Coronal and sagittal images reconstructed from the axial data. Dose modulation, iterative reconstruction, and/or weight based adjustment of the mA/kV was utilized to reduce the radiation dose to as low as reasonably achievable. Intravenous contrast: None Findings: Soft tissues: No abnormalities. Bones: Age indeterminate, likely chronic nondisplaced fracture of right nasal bone without overlying soft tissue swelling. Orbits: Globes: Intact Extra or intraconal abnormalities: None. Paranasal sinuses: Clear Incidental finding: Linear radiopaque density around the left mandibular premolar. IMPRESSION: No acute abnormality. Signed by: Dr. Sherrill Melendrez M.D. on 04/20/2020 10:08 PM
--- NOTE | 2020-04-20 22:16 | Diagnostic Imaging Report ---
EXAM: CT Chest, Abdomen and Pelvis WITH contrast INDICATION: ^Fall l chest pain ^20200420 ^2029 COMPARISON: None. TECHNIQUE: Chest, abdomen and pelvis were scanned utilizing a multidetector helical scanner from the lung apex to the pubic symphysis after administration of IV contrast. Coronal and sagittal reformations were obtained. Scan was performed during arterial phase through the chest and early portal venous phase through the abdomen and pelvis. No oral contrast was given. IV CONTRAST: 100 mL of Isovue-370 ORAL CONTRAST: None COMPLICATIONS: None RADIATION DOSE: Total DLP: 852.05 mGy*cm Estimated effective dose: (DLP x 0.015 x size factor) mSv CTDIvol has been reviewed. It is below the limits set by the Radiation Protocol Committee (RPC). FINDINGS: LINES and TUBES: None. LUNGS AND AIRWAYS: Bilateral subsegmental atelectasis. Trace left hemothorax. Pulmonary vascular congestion. Airways are normal. PLEURA: The pleural spaces are clear. HEART AND MEDIASTINUM: The visualized thyroid gland is normal. No mediastinal, hilar or axillary lymphadenopathy. Cardiomegaly. Coronary stents. There is no pericardial effusion. HEPATOBILIARY: No focal hepatic lesions. No liver laceration. No biliary ductal dilation. GALLBLADDER: Surgically absent. SPLEEN: No splenomegaly. No splenic laceration. PANCREAS: No focal masses or ductal dilatation. ADRENALS: No adrenal nodules KIDNEYS/URETERS: Kidneys enhance symmetrically. No hydronephrosis. Bilateral renal cysts. No stones. GI TRACT: No abnormal distention, wall thickening, or evidence of bowel obstruction. There are diverticula within the colon without evidence of diverticulitis. Appendix is normal. PELVIC ORGANS/BLADDER: Unremarkable. LYMPH NODES: No lymphadenopathy. VESSELS: There is mild to moderate atherosclerotic disease in the aorta and major arterial branches. PERITONEUM / RETROPERITONEUM: No free air or fluid. BONES: Fractures of the left lateral 6-9 ribs (seventh and eighth rib fractures show moderate displacement). SOFT TISSUES: Evidence of ventral hernia repair. IMPRESSION: 1. Multiple left-sided rib fractures, some displaced, without evidence of pneumothorax. Trace left hemothorax. 2. Cardiomegaly and pulmonary vascular evaluation. 3. No evidence of traumatic injury in the abdomen/pelvis. Signed by: Dr. Lui Beyer MD on 04/20/2020 10:13 PM
[2020-04-20] MEDS ORDERED: MORPHINE SULFATE INJ 4 MG/ML INJ 1ML IV STA (22:22)
--- NOTE | 2020-04-20 23:20 | NUR ---
[facility] AT FACILITY TO TRANSPORT PT TO [facility]
[2020-04-20 23:43] VITALS: BP 156/87
== END 2020-04-20 23:45 | disposition other institution (70) ==
LOC: ER 19:54
DX: S22.42XA Multiple fractures of ribs, left side, initial encounter for closed fracture (principal); S00.83XA Contusion of other part of head, initial encounter; R06.02 Shortness of breath; S80.812A Abrasion, left lower leg, initial encounter; W11.XXXA Fall on and from ladder, initial encounter; Y92.008 Other place in unspecified non-institutional (private) residence as the place of occurrence of the external cause; E11.65 Type 2 diabetes mellitus with hyperglycemia; I10 Essential (primary) hypertension
CPT/HCPCS: 36415; 70450; 70486; 71260; 72125; 73562; 73590; 74177; 80053; 84484; 85025; 86850; 86900; 93005; 99284; J2270; J2405; J7040; Q9967

== ENCOUNTER 2020-05-01 16:01 | Emergency (ER) | payer MEDICARE ==
[~2020-05-01] VITALS: Ht 177.8 cm; Wt 120.2 kg
[2020-05-01] MEDS ORDERED: SODIUM CHLORIDE 0.9% 1000ML 1,000 ML IV STA (16:10)
[2020-05-01] MEDS ORDERED: ONDANSETRON HCL INJ 2MG/ML 2ML 2 MG/ML VIAL IV PRN (16:30)
[2020-05-01 16:38] LABS: BASOPHILS % 0.2 % (0.0-1.0); HEMATOCRIT 45.7 % (38.2-49.6); HEMOGLOBIN 14.7 g/dL (14.0-18.0); LYMPHOCYTES # (AUTO) 0.5 (1.0-3.2); LYMPHOCYTES % 5.2 % (18.0-39.1); MEAN CORPUSCULAR HEMOGLOBIN 29.3 pg (28-32); MEAN CORPUSCULAR HGB CONC 32.2 g/dL (31-35); MONOCYTES # (AUTO) 0.8 (0.2-0.8); MONOCYTES % 8.3 % (4.4-11.3); NEUTROPHILS # (AUTO) 8.6 (2.1-6.9); NEUTROPHILS % 85.2 % (38.7-80.0); PLATELET COUNT 254 x10e3/uL (140-360); RED BLOOD COUNT 5.02 x10e6/uL (4.3-5.7); RED CELL DISTRIBUTION WIDTH 14.1 % (11.7-14.4)
[2020-05-01 16:39] LABS: INR 1.06; PROTHROMBIN TIME 14.3 seconds (11.9-14.5)
[2020-05-01 16:40] LABS: PARTIAL THROMBOPLASTIN TIME 39.3 seconds (23.8-35.5)
[2020-05-01] MEDS ORDERED: MORPHINE SULFATE INJ 4 MG/ML INJ 1ML IV PRN (16:45)
[2020-05-01 16:48] LABS: ALBUMIN 3.7 g/dL (3.5-5.0); ALBUMIN/GLOBULIN RATIO 0.9 (0.8-2.0); ANION GAP 17.3 mmol/L (8-16); CALCIUM 9.7 mg/dL (8.4-10.2); CREATININE, SERUM 1.59 mg/dL (0.72-1.25); POTASSIUM 4.3 mmol/L (3.5-5.1)
[2020-05-01 18:28] LABS: CREATINE KINASE 91 IU/L (30-200)
[2020-05-01 18:40] LABS: BILIRUBIN,URINE NEGATIVE (NEGATIVE); CLARITY,URINE HAZY (CLEAR); COLOR,URINE YELLOW (YELLOW); KETONES,URINE NEGATIVE (NEGATIVE); LEUKOCYTE ESTERASE ,URINE TRACE (NEGATIVE); NITRITE,URINE NEGATIVE (NEGATIVE); PROTEIN,URINE DIPSTICK NEGATIVE (NEGATIVE); URINE UROBILINOGEN 0.2 mg/dL (0.2 - 1)
[2020-05-01 18:44] LABS: BACTERIA,URINE MODERATE /HPF; EPITHELIAL CELLS,URINE FEW /LPF; MUCUS,URINE FEW (RARE); WBC,URINE (MAN) >50 /HPF (0-5)
[2020-05-01] MEDS ORDERED: LEVOFLOXACIN250 MG PO (19:05)
== END 2020-05-01 19:25 | disposition home or self-care (01) ==
LOC: ER 16:12
DX: J40 Bronchitis, not specified as acute or chronic (principal); R06.02 Shortness of breath; N39.0 Urinary tract infection, site not specified; I10 Essential (primary) hypertension; E11.9 Type 2 diabetes mellitus without complications
CPT/HCPCS: 36415; 71045; 80053; 81001; 82550; 82553; 83880; 84484; 85025; 85610; 85730; 87040; 87086; 99284; J7030; U0002; 87186; 93005

== ENCOUNTER 2021-02-01 19:48 | Emergency (ER) | payer MEDICARE ==
[~2021-02-01] VITALS: Ht 177.8 cm; Wt 108.9 kg
[~2021-02-01 19:48] MED LIST changes: +LEVOFLOXACIN250 MG PO
[2021-02-01 20:05] LABS: BASOPHILS % 0.2 % (0.0-1.0); EOSINOPHILS % 0.1 % (0.0-6.0); HEMATOCRIT 41.7 % (38.2-49.6); HEMOGLOBIN 13.6 g/dL (14.0-18.0); LYMPHOCYTES # (AUTO) 0.9 (1.0-3.2); LYMPHOCYTES % 7.6 % (18.0-39.1); MEAN CORPUSCULAR HEMOGLOBIN 29.7 pg (28-32); MEAN CORPUSCULAR HGB CONC 32.6 g/dL (31-35); MONOCYTES # (AUTO) 0.8 (0.2-0.8); MONOCYTES % 6.4 % (4.4-11.3); NEUTROPHILS # (AUTO) 10.2 (2.1-6.9); NEUTROPHILS % 84.7 % (38.7-80.0); PLATELET COUNT 164 x10e3/uL (140-360); RED BLOOD COUNT 4.58 x10e6/uL (4.3-5.7); RED CELL DISTRIBUTION WIDTH 14.1 % (11.7-14.4)
[2021-02-01] MEDS ORDERED: KETOROLAC TROMETHAMINE 30 MG/ML VIAL IV STA (20:07)
[2021-02-01] MEDS ORDERED: SODIUM CHLORIDE 0.9% 1000ML 1,000 ML IV STA (20:07)
[2021-02-01 20:11] LABS: CLARITY,URINE CLEAR (CLEAR); COLOR,URINE YELLOW (YELLOW); KETONES,URINE NEGATIVE (NEGATIVE); LEUKOCYTE ESTERASE ,URINE NEGATIVE (NEGATIVE); NITRITE,URINE NEGATIVE (NEGATIVE); PROTEIN,URINE DIPSTICK NEGATIVE (NEGATIVE); URINE UROBILINOGEN 0.2 mg/dL (0.2 - 1)
[2021-02-01] MEDS ORDERED: CEFEPIME 1 GM in SODIUM CHLORIDE 0.9% 50ML 50 ML IV ONE (20:15)
[2021-02-01] MEDS ORDERED: SODIUM CHLORIDE 0.9% 1000ML 1,000 ML ONE (20:21)
[2021-02-01 20:23] LABS: BACTERIA,URINE MODERATE /HPF
[2021-02-01 20:27] LABS: ALBUMIN 3.8 g/dL (3.5-5.0); ANION GAP 19.9 mmol/L (8-16); CALCIUM 9.1 mg/dL (8.4-10.2); CREATININE, SERUM 1.35 mg/dL (0.72-1.25); POTASSIUM 3.9 mmol/L (3.5-5.1)
[2021-02-01 20:34] LABS: CREATINE KINASE MB 0.6 ng/mL (0-5.0)
[2021-02-01] MEDS ORDERED: SODIUM CHLORIDE 0.9% 50ML 50 ML ONE (20:53)
[2021-02-01] MEDS ORDERED: IOPAMIDOL 370 MG/ML 200 ML INFUS..BTL INJ ONE (20:54)
[2021-02-01] MEDS ORDERED: BACTRIM DS TAB1 EACH PO (21:56)
== END 2021-02-01 22:20 | disposition home or self-care (01) ==
LOC: ER 19:52
DX: N39.0 Urinary tract infection, site not specified (principal); R50.9 Fever, unspecified; I10 Essential (primary) hypertension; E11.9 Type 2 diabetes mellitus without complications
CPT/HCPCS: 36415; 74177; 80053; 81001; 82550; 82553; 83605; 84484; 85025; 87040; 87086; 87186; 99284; J0692; J1885; J7030; Q9967; U0002

== ENCOUNTER 2021-03-15 16:20 | Inpatient (IN) | payer MEDICARE ==
[~2021-03-15] VITALS: Ht 177.8 cm; Wt 108.9 kg
[~2021-03-15 16:20] MED LIST changes: +BACTRIM DS TAB1 EACH PO; -FARXIGA10 MG; +FARXIGA10 MG PO
[2021-03-15] MEDS ORDERED: ONDANSETRON HCL INJ 2MG/ML 2ML 2 MG/ML VIAL IV NR (16:31)
[2021-03-15 16:45] LABS: BASOPHILS # (AUTO) 0.1 (0.0-0.1); BASOPHILS % 0.3 % (0.0-1.0); EOSINOPHILS % 0.1 % (0.0-6.0); HEMATOCRIT 40.7 % (38.2-49.6); HEMOGLOBIN 13.1 g/dL (14.0-18.0); LYMPHOCYTES # (AUTO) 0.6 (1.0-3.2); LYMPHOCYTES % 2.8 % (18.0-39.1); MEAN CORPUSCULAR HEMOGLOBIN 29.6 pg (28-32); MEAN CORPUSCULAR HGB CONC 32.2 g/dL (31-35); MEAN CORPUSCULAR VOLUME 91.9 fL (81-99); MONOCYTES # (AUTO) 1.3 (0.2-0.8); MONOCYTES % 6.4 % (4.4-11.3); NEUTROPHILS # (AUTO) 18.3 (2.1-6.9); NEUTROPHILS % 89.6 % (38.7-80.0); PLATELET COUNT 190 x10e3/uL (140-360); RED BLOOD COUNT 4.43 x10e6/uL (4.3-5.7); RED CELL DISTRIBUTION WIDTH 14.2 % (11.7-14.4)
[2021-03-15] MEDS ORDERED: LACTATED RINGER'S 1,000 ML INJ ONE ×2 (16:45→21:00)
[2021-03-15 17:00] LABS: ALBUMIN 4.1 g/dL (3.5-5.0); ALBUMIN/GLOBULIN RATIO 1.2 (0.8-2.0); ANION GAP 17.6 mmol/L (8-16); CALCIUM 9.3 mg/dL (8.4-10.2); CREATININE, SERUM 1.17 mg/dL (0.72-1.25); POTASSIUM 3.6 mmol/L (3.5-5.1)
[2021-03-15 17:06] LABS: CREATINE KINASE MB 1.4 ng/mL (0-5.0)
[2021-03-15] MEDS ORDERED: LACTATED RINGER'S 1,000 ML ONE ×2 (20:04→21:13)
[2021-03-15] MEDS ORDERED: ONDANSETRON HCL INJ 2MG/ML 2ML 2 MG/ML VIAL ONE (20:06)
[2021-03-15 20:19] LABS: CLARITY,URINE CLOUDY (CLEAR); COLOR,URINE YELLOW (YELLOW); KETONES,URINE TRACE (NEGATIVE); LEUKOCYTE ESTERASE ,URINE NEGATIVE (NEGATIVE); NITRITE,URINE POSITIVE (NEGATIVE); PROTEIN,URINE DIPSTICK NEGATIVE (NEGATIVE); URINE UROBILINOGEN 0.2 mg/dL (0.2 - 1)
[2021-03-15 20:28] LABS: BACTERIA,URINE MODERATE /HPF; EPITHELIAL CELLS,URINE FEW /LPF; RBC,URINE 0-5 /HPF (0-5)
[2021-03-15] MEDS ORDERED: CEFTRIAXONE 1 GM VIAL IV ONE (21:00)
[2021-03-15] MEDS ORDERED: SODIUM CHLORIDE 0.9% 50ML 50 ML ONE (21:13)
[2021-03-15] MEDS ORDERED: CEFTRIAXONE 1 GM VIAL ONE (21:13)
[2021-03-15] MEDS ORDERED: CEFTRIAXONE SOD 1 GM 50 ML IV ONE (21:30)
[2021-03-15] MEDS ORDERED: ONDANSETRON HCL INJ 2MG/ML 2ML 2 MG/ML VIAL IV PRN (21:30)
[2021-03-16] MEDS: SODIUM CHLORIDE 0.9% 1000ML 1,000 ML IV SCH ×4 (02:14→21:12)
[2021-03-16 06:15] LABS: BASOPHILS % 0.2 % (0.0-1.0); HEMATOCRIT 36.1 % (38.2-49.6); HEMOGLOBIN 11.8 g/dL (14.0-18.0); LYMPHOCYTES # (AUTO) 0.5 (1.0-3.2); LYMPHOCYTES % 3.2 % (18.0-39.1); MEAN CORPUSCULAR HEMOGLOBIN 29.9 pg (28-32); MEAN CORPUSCULAR HGB CONC 32.7 g/dL (31-35); MEAN CORPUSCULAR VOLUME 91.4 fL (81-99); MONOCYTES # (AUTO) 0.9 (0.2-0.8); MONOCYTES % 6.1 % (4.4-11.3); NEUTROPHILS # (AUTO) 13.8 (2.1-6.9); NEUTROPHILS % 89.9 % (38.7-80.0); PLATELET COUNT 157 x10e3/uL (140-360); RED BLOOD COUNT 3.95 x10e6/uL (4.3-5.7); RED CELL DISTRIBUTION WIDTH 14.2 % (11.7-14.4)
[2021-03-16] MEDS: ACETAMINOPHEN 325 MG TAB PO PRN ×3 (06:39→21:13)
[2021-03-16 07:10] LABS: ANION GAP 13.5 mmol/L (8-16); CALCIUM 8.9 mg/dL (8.4-10.2); CREATININE, SERUM 1.06 mg/dL (0.72-1.25); POTASSIUM 3.5 mmol/L (3.5-5.1)
[2021-03-16] MEDS ORDERED: ACETAMINOPHEN/CODEINE 300MG - 30MG TAB PO PRN (10:45)
[2021-03-16] MEDS ORDERED: INSULIN REGULAR, HUMAN 100 UNIT/1 ML SQ SCH (11:30)
[2021-03-16] MEDS ORDERED: DEXTROSE 50% SYRINGE 50 ML IV PRN (12:15)
[2021-03-16 13:48] VITALS: BP 127/71
[2021-03-16 14:02] VITALS: BP 127/71
[2021-03-16] MEDS: PIOGLITAZONE HCL 15 MG TAB PO SCH (14:13)
[2021-03-16 14:21] VITALS: BP 127/71
[2021-03-16] MEDS ORDERED: SIMVASTATIN20 MG PO (15:40)
[2021-03-16 15:47] VITALS: BP 105/61
[2021-03-16] MEDS ORDERED: PIOGLITAZONE HCL 45 MG TAB PO SCH (17:00)
[2021-03-16] MEDS ORDERED: GLIPIZIDE 5 MG TAB ER PO SCH (17:00)
[2021-03-16] MEDS: ENOXAPARIN SOD INJ 40 MG/0.4 ML SYR SC SCH (17:05)
[2021-03-16] MEDS: GLIPIZIDE 5 MG TAB PO SCH (17:06)
[2021-03-16 17:10] VITALS: BP 105/61
[2021-03-16] MEDS: INSULIN REGULAR, HUMAN 100 UNIT/1 ML SQ SCH ×2 (17:10→21:15)
[2021-03-16 20:00] VITALS: BP 128/74
[2021-03-16] MEDS ORDERED: CEFTRIAXONE 1 GM in SODIUM CHLORIDE 0.9% 50ML 50 ML IV SCH (21:00)
[2021-03-17] VITALS (9 sets, daily range): BP systolic 98–142; BP diastolic 55–64
[2021-03-17] MEDS: MEROPENEM 500 MG in SODIUM CHLORIDE 0.9% 50ML 50 ML IV SCH ×4 (00:29→17:00)
[2021-03-17] MEDS: SODIUM CHLORIDE 0.9% 1000ML 1,000 ML IV SCH ×2 (04:14→14:08)
[2021-03-17 04:55] LABS: BASOPHILS % 0.2 % (0.0-1.0); HEMATOCRIT 37.1 % (38.2-49.6); HEMOGLOBIN 11.8 g/dL (14.0-18.0); LYMPHOCYTES # (AUTO) 0.6 (1.0-3.2); LYMPHOCYTES % 6.5 % (18.0-39.1); MEAN CORPUSCULAR HEMOGLOBIN 29.8 pg (28-32); MEAN CORPUSCULAR HGB CONC 31.8 g/dL (31-35); MEAN CORPUSCULAR VOLUME 93.7 fL (81-99); MONOCYTES # (AUTO) 0.9 (0.2-0.8); MONOCYTES % 8.9 % (4.4-11.3); NEUTROPHILS # (AUTO) 8.2 (2.1-6.9); NEUTROPHILS % 83.4 % (38.7-80.0); PLATELET COUNT 108 x10e3/uL (140-360); RED BLOOD COUNT 3.96 x10e6/uL (4.3-5.7); RED CELL DISTRIBUTION WIDTH 14.5 % (11.7-14.4)
[2021-03-17] MEDS: ACETAMINOPHEN 325 MG TAB PO PRN ×3 (05:12→21:07)
[2021-03-17 05:15] LABS: ALBUMIN 3.1 g/dL (3.5-5.0); ALBUMIN/GLOBULIN RATIO 0.9 (0.8-2.0); ANION GAP 17.5 mmol/L (8-16); CALCIUM 8.4 mg/dL (8.4-10.2); CREATININE, SERUM 1.04 mg/dL (0.72-1.25); POTASSIUM 3.5 mmol/L (3.5-5.1)
[2021-03-17] MEDS: GLIPIZIDE 5 MG TAB PO SCH ×2 (08:36→16:48)
[2021-03-17] MEDS: PIOGLITAZONE HCL 15 MG TAB PO SCH (08:36)
[2021-03-17] MEDS: LISINOPRIL 10 MG TAB PO SCH (08:36)
[2021-03-17] MEDS: INSULIN REGULAR, HUMAN 100 UNIT/1 ML SQ SCH ×4 (09:47→21:00)
[2021-03-17] MEDS: ENOXAPARIN SOD INJ 40 MG/0.4 ML SYR SC SCH (16:48)
[2021-03-18] VITALS (8 sets, daily range): BP systolic 106–131; BP diastolic 59–76
[2021-03-18] MEDS: SODIUM CHLORIDE 0.9% 1000ML 1,000 ML IV SCH ×2 (04:39→14:55)
[2021-03-18] MEDS: ACETAMINOPHEN 325 MG TAB PO PRN (04:40)
[2021-03-18] MEDS: MEROPENEM 500 MG in SODIUM CHLORIDE 0.9% 50ML 50 ML IV SCH ×5 (04:40→16:47)
[2021-03-18 04:58] LABS: BASOPHILS % 0.2 % (0.0-1.0); EOSINOPHILS % 0.7 % (0.0-6.0); HEMATOCRIT 34.5 % (38.2-49.6); HEMOGLOBIN 11.5 g/dL (14.0-18.0); LYMPHOCYTES # (AUTO) 1.1 (1.0-3.2); LYMPHOCYTES % 17.4 % (18.0-39.1); MEAN CORPUSCULAR HEMOGLOBIN 29.9 pg (28-32); MEAN CORPUSCULAR HGB CONC 33.3 g/dL (31-35); MEAN CORPUSCULAR VOLUME 89.6 fL (81-99); MONOCYTES # (AUTO) 0.5 (0.2-0.8); MONOCYTES % 8.9 % (4.4-11.3); NEUTROPHILS # (AUTO) 4.4 (2.1-6.9); NEUTROPHILS % 72.1 % (38.7-80.0); PLATELET COUNT 114 x10e3/uL (140-360); RED BLOOD COUNT 3.85 x10e6/uL (4.3-5.7); RED CELL DISTRIBUTION WIDTH 14.3 % (11.7-14.4)
[2021-03-18 05:34] LABS: ANION GAP 16.3 mmol/L (8-16); CALCIUM 8.1 mg/dL (8.4-10.2); CREATININE, SERUM 0.82 mg/dL (0.72-1.25); POTASSIUM 3.3 mmol/L (3.5-5.1)
[2021-03-18] MEDS: INSULIN REGULAR, HUMAN 100 UNIT/1 ML SQ SCH ×4 (07:30→20:40)
[2021-03-18] MEDS: GLIPIZIDE 5 MG TAB PO SCH ×2 (07:30→16:30)
[2021-03-18] MEDS: LISINOPRIL 10 MG TAB PO SCH (09:00)
[2021-03-18] MEDS: PIOGLITAZONE HCL 15 MG TAB PO SCH (09:00)
[2021-03-18] MEDS ORDERED: POTASSIUM CHLORIDE 10MEQ EA PO ONE (12:15)
[2021-03-18] MEDS: ENOXAPARIN SOD INJ 40 MG/0.4 ML SYR SC SCH (16:46)
[2021-03-19] MEDS: MEROPENEM 500 MG in SODIUM CHLORIDE 0.9% 50ML 50 ML IV SCH ×5 (00:28→23:12)
[2021-03-19 00:33] VITALS: BP 106/59
[2021-03-19 05:09] VITALS: BP 123/69
[2021-03-19] MEDS: SODIUM CHLORIDE 0.9% 1000ML 1,000 ML IV SCH ×2 (05:55→16:54)
[2021-03-19] MEDS: GLIPIZIDE 5 MG TAB PO SCH ×2 (07:30→16:30)
[2021-03-19] MEDS: INSULIN REGULAR, HUMAN 100 UNIT/1 ML SQ SCH ×4 (07:30→20:16)
[2021-03-19 08:00] VITALS: BP 123/69
[2021-03-19] MEDS: LISINOPRIL 10 MG TAB PO SCH (09:00)
[2021-03-19] MEDS: PIOGLITAZONE HCL 15 MG TAB PO SCH (09:00)
[2021-03-19 10:51] VITALS: BP 114/68
[2021-03-19 12:18] VITALS: BP 123/71
[2021-03-19] MEDS: ENOXAPARIN SOD INJ 40 MG/0.4 ML SYR SC SCH (16:54)
[2021-03-19 20:00] VITALS: BP 124/62
[2021-03-20] VITALS (8 sets, daily range): BP systolic 97–124; BP diastolic 42–64
[2021-03-20] MEDS: MEROPENEM 500 MG in SODIUM CHLORIDE 0.9% 50ML 50 ML IV SCH ×4 (05:23→23:42)
[2021-03-20] MEDS: INSULIN REGULAR, HUMAN 100 UNIT/1 ML SQ SCH ×4 (07:30→21:10)
[2021-03-20] MEDS: LISINOPRIL 10 MG TAB PO SCH (09:00)
[2021-03-20] MEDS: PIOGLITAZONE HCL 15 MG TAB PO SCH (09:14)
[2021-03-20] MEDS: GLIPIZIDE 5 MG TAB PO SCH ×2 (09:14→16:42)
[2021-03-20] MEDS: ENOXAPARIN SOD INJ 40 MG/0.4 ML SYR SC SCH (16:50)
[2021-03-21] VITALS: BP 125/76
[2021-03-21 04:00] VITALS: BP 110/64
[2021-03-21] MEDS: MEROPENEM 500 MG in SODIUM CHLORIDE 0.9% 50ML 50 ML IV SCH ×2 (06:37→11:47)
[2021-03-21] MEDS: INSULIN REGULAR, HUMAN 100 UNIT/1 ML SQ SCH ×2 (07:30→13:56)
[2021-03-21 07:55] VITALS: BP 119/62
[2021-03-21 08:00] VITALS: BP 119/62
[2021-03-21] MEDS: PIOGLITAZONE HCL 15 MG TAB PO SCH (09:18)
[2021-03-21] MEDS: LISINOPRIL 10 MG TAB PO SCH (09:18)
[2021-03-21] MEDS: GLIPIZIDE 5 MG TAB PO SCH (09:18)
[2021-03-21] MEDS ORDERED: SODIUM CHLORIDE 0.9% 250ML 250 ML ONE (10:56)
[2021-03-21 12:00] VITALS: BP 134/79
[2021-03-21] MEDS ORDERED: MEROPENEM500 MG IV (12:09)
[2021-03-21] MEDS ORDERED: ONDANSETRON HCL 4 MG ORAL DISINTEGRATING TAB PO PRN (12:45)
== END 2021-03-21 14:00 | disposition home health service (06) | DRG 871 ==
LOC: ER 16:29 → ERHOLD 21:32 → MED/SURG2 03-16 13:38
PROVIDERS: ADMIT Internal Medicine; ATTEND Internal Medicine
PROC: 02HV33Z Insertion of Infusion Device into Superior Vena Cava, Percutaneous Approach (ICD-10-PCS; principal; 2021-03-18)
DX: A41.51 Sepsis due to Escherichia coli [E. coli] (principal); G93.41 Metabolic encephalopathy; N39.0 Urinary tract infection, site not specified; Z16.12 Extended spectrum beta lactamase (ESBL) resistance; I10 Essential (primary) hypertension; E11.9 Type 2 diabetes mellitus without complications; Z90.49 Acquired absence of other specified parts of digestive tract; Z79.84 Long term (current) use of oral hypoglycemic drugs; Z20.822 Contact with and (suspected) exposure to COVID-19
CPT/HCPCS: 36415; 36569; 71045; 80048; 80053; 81001; 82550; 82553; 82948; 83605; 84443; 84484; 85025; 87040; 87086; 87186; 93005; 99284; J0696; J1650; J1817; J2185; J2405; J7030; J7050; J7121; U0002